=== PATIENT | female | born 1960 | race Caucasian/White ===

== ENCOUNTER 2016-04-03 09:24 | Emergency (ER) | payer OTHER ==
[~2016-04-03] VITALS: Wt 118.8 kg
[2016-04-03] VITALS (7 sets, daily range): BP systolic 119–169; BP diastolic 68–110
[~2016-04-03 09:24] MED LIST: AMOXICILLIN500 M3 PO; AMOXICILLIN500 MG PO; ANAPROX DS550 MG PO; ASPIRIN CHILDRE81 MG PO; AUGMENTIN 875 M1 TAB PO; CIPRODEX 0.3%-7.5 ML OT; D3 + K2 DOTS 11 EACH PO; FISH OIL 500MG500 MG PO; GINGER ROOT550 M1 PO; HYZAAR 50/12.5M1 TAB PO; MAGNESIUM CITR100 MG PO; MOTRIN800 MG PO; PALMITATE-A5000 IU PO; PROBIOTIC ACID1 EAC2 PO; RED RICE YEAST E0.4%; TURMERIC ROOT5000 GM PO
[2016-04-03 10:00] LABS: BASO # 0.1 10*3/uL (0.0-0.1); BASO % 0.5 % (0.0-1.0); EOS # 0.2 10*3/uL (0.0-0.4); EOS % 1.3 % (1.0-4.0); HEMOGLOBIN 15.8 g/dl (12.0-16.0); IG # 0.1 10*3/uL (0.0-0.1); LYMPH # 3.9 10*3/uL (1.3-4.4); LYMPH % 25.6 % (27.0-41.0); MEAN CELL VOLUME 86.6 fl (81.0-99.0); MEAN CORPUSCULAR HGB 28.5 pg (27.0-31.0); MEAN CORPUSCULAR HGB CONC 32.9 g/dl (33.0-37.0); MONO # 1.3 10*3/uL (0.1-1.0); MONO % 8.7 % (3.0-9.0); NEUT # 9.6 10*3/uL (2.3-7.9); NEUT % 63.2 % (47.0-73.0); PLATELET COUNT AUTOMATED 588 10*3/uL (130-400); RED BLOOD COUNT 5.54 10*6/uL (4.10-5.10); WHITE BLOOD COUNT 15.3 10*3/uL (4.8-10.8)
[2016-04-03] MEDS ORDERED: MASON NATURAL600 MG PO (10:00)
[2016-04-03] MEDS ORDERED: FISH OIL 1,2001 EACH PO (10:01)
[2016-04-03] MEDS ORDERED: PREDNISONE20 M1 PO (10:03)
[2016-04-03] MEDS ORDERED: VITAMIN D31000 I2 PO (10:03)
[2016-04-03] MEDS ORDERED: METHOTREXATE2.5 MG PO (10:04)
[2016-04-03] MEDS ORDERED: NATURE'S BLEND F1 MG PO (10:06)
[2016-04-03] MEDS ORDERED: MYCOPHENOLATE500 MG PO (10:06)
[2016-04-03 10:10] LABS: INTERNATIONAL NORM RATIO 0.9 (2.0-3.5); PROTHROMBIN TIME 9.4 SECONDS (9.0-12.4)
[2016-04-03 10:21] LABS: ALBUMIN 3.2 gm/dl (3.1-4.5); ALKALINE PHOSPHATASE 84 U/L (45-117); BILIRUBIN, TOTAL 0.3 mg/dl (0.2-1.0); BUN 11 mg/dl (7-24); CARBON DIOXIDE 25 mmol/L (21-32); CHLORIDE 109 mmol/L (98-107); EST GLOM FILT AFRICAN AMERICAN > 60 ml/min; GLUCOSE 109 mg/dL (65-99); POTASSIUM 3.8 mmol/L (3.5-5.1); SGOT/AST 10 IU/L (3-35); SGPT/ALT 19 U/L (12-78); SODIUM 144 mmol/L (136-145); TOTAL PROTEIN 7.6 gm/dL (6.4-8.2)
[2016-04-03 10:23] LABS: MAGNESIUM 2.5 mg/dL (1.5-2.1)
[2016-04-03 11:00] LABS: BILIRUBIN NEGATIVE (NEGATIVE); BLOOD TRACE-INTACT (NEGATIVE); CLARITY CLEAR (CLEAR); COLOR STRAW (YELLOW); GLUCOSE NEGATIVE (NEGATIVE); KETONE NEGATIVE (NEGATIVE); LEUKO ESTERASE NEGATIVE (NEGATIVE); NITRITE NEGATIVE (NEGATIVE); PROTEIN NEGATIVE (NEGATIVE); SPECIFIC GRAVITY <= 1.005 (1.005-1.030); UROBILINOGEN 0.2 E.U./dl (0.2-1.0)
[2016-04-03 11:08] LABS: BACTERIA TRACE; RBC 0-2 rbc/hpf (0-2); URINE REFLEX COMMENT NO (NO); WBC 0-2 wbc/hpf (0-5)
[2016-04-03] MEDS ORDERED: PREDNISONE5 MG PO (12:54)
[2016-04-04] MEDS ORDERED: METOPROLOL SUCC25 M2 PO (13:34)
[2016-04-04] MEDS ORDERED: XARE20MG PO (13:34)
== END 2016-04-03 12:22 | disposition admitted as inpatient to this hospital (09) ==
LOC: ED 09:24 → EDHOLD 11:19 → ED 12:22
PROVIDERS: Registered Nurse
DX: I48.91 Unspecified atrial fibrillation (principal); I10 Essential (primary) hypertension; F17.200 Nicotine dependence, unspecified, uncomplicated; Z79.82 Long term (current) use of aspirin; Z88.1 Allergy status to other antibiotic agents; Z88.6 Allergy status to analgesic agent; Z88.8 Allergy status to other drugs, medicaments and biological substances

== ENCOUNTER 2016-04-03 11:21 | Inpatient (IN) | payer OTHER ==
[~2016-04-03] VITALS: Ht 160 cm; Wt 122.5 kg
--- NOTE | ~2016-04-03 | PR ---
[place], [place] PROGRESS NOTE NAME: RAYMOND GAVIN UNIT #: [id number] ROOM: 525 DOCTOR: CRYSTAL MCBRIDE MD BIRTHDATE: [birth year] DOS: 04/04/2016 SUBJECTIVE: The patient was seen at her bedside today, 04/04/2016, for followup of atrial fibrillation. She tells me that she feels great today and is anxious for discharge. She denies any chest pain or palpitations. She denies any dyspnea. Review of her monitor; however, shows that she remains in atrial fibrillation with a controlled ventricular response. She has not yet received her first dose of rivaroxaban. PHYSICAL EXAMINATION: VITAL SIGNS: Today, her pulse is 87 and irregularly irregular, blood pressure 135/76. She is afebrile. She weighs 122.5 kilograms with a body mass index of 47.8. HEENT: Normocephalic, atraumatic. Extraocular muscles are intact. Sclerae are clear. Pupils are equal, round, and reactive to light. The oral mucosa is moist. Tongue is midline. NECK: Supple. She has no jugular distention. Carotids are full. I heard no bruits. LUNGS: Respirations are unlabored. Chest is clear to auscultation and percussion. HEART: Has an irregularly irregular rhythm without murmurs, rubs or gallops. ABDOMEN: Soft and normoactive. EXTREMITIES: Showed no edema. She does seem to be stable hemodynamically, even though she remains in atrial fibrillation. We are awaiting the results of her echocardiogram. Assuming no surprises, I think that she could go home in atrial fibrillation with a controlled rate with stroke prophylaxis and beta jo therapy. We will follow up with her in the office in a few weeks. If she remains in atrial fibrillation at that time, we can discuss with her the possibility of a cardioversion. I thank the hospitalist group for asking our advice regarding her care. [place], [place] PROGRESS NOTE NAME: RAYMOND GAVIN UNIT #: [id number] ROOM: 525 DOCTOR: CRYSTAL MCBRIDE MD BIRTHDATE: [birth year] CRYSTAL MCBRIDE MD CM:PNTRANS [id number] CRYSTAL MCBRIDE MD 04/04/162025 interface
--- NOTE | ~2016-04-03 | CON ---
[place], [place] REPORT OF CONSULTATION NAME: [id number] UNIT #: [id number] ROOM: 525 DOCTOR: CRYSTAL MCBRIDE MD BIRTHDATE: [birth year] DOS: 04/03/2016 CARDIOLOGY CONSULTATION REASON FOR CONSULTATION: Newly diagnosed atrial fibrillation. HISTORY OF PRESENT ILLNESS: The patient is a 55-year-old woman who states that she has never had any history of heart disease. This morning at about 9:00 a.m., she became dizzy while standing up and noticed that her breathing was rapid and that she was having palpitations. She was seen in the Emergency Room where she was found to be in atrial fibrillation with a rapid ventricular response. She was placed on diltiazem, her heart rate slowed, but she has not yet converted back to sinus rhythm. She had an episode where she felt like this several years ago just after the of their daughter. She states that she was not told of any irregular heartbeat at that time, however. The patient does have predisposing factors including obesity, significant snoring, possible sleep apnea (never evaluated), prediabetes, and cigarette abuse. She does have a history of essential hypertension. PAST MEDICAL HISTORY: Includes 1. 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 2. Prediabetes. 3. Right adrenal mass. 4. Thrombocytosis. 5. Essential hypertension. 6. Thyroid cyst. 7. Newly documented atrial fibrillation, first noted on 04/03/2016. FAMILY HISTORY: The patient denies any history of early coronary artery disease. She does have multiple family members who have had diabetes. REVIEW OF SYSTEMS: The patient denies diplopia or loss of vision. She denies focal weakness. She denies lightheadedness or syncope. She denies nausea or vomiting. She denies fevers, chills, sweats, or recent weight change. She denies heat or cold intolerance. She denies orthopnea or PND. She denies polydipsia or polyuria. She denies cough or hemoptysis. She denies hematemesis. She denies any bleeding in her stools or urine. She denies any peripheral edema. She denies skin rashes. The remainder of the review of systems is negative except as noted above. MEDICATIONS PRIOR TO ADMISSION: Aspirin 81 mg per day, vitamin D 1000 units per day, fish oil daily, folic acid 1 mg daily, probiotic capsule daily, losartan with hydrochlorothiazide 50/12.5 once a day, methotrexate 2.5 mg tablets 6 tablets every Friday, CellCept 1000 mg q.12 hours, prednisone 20 mg daily, and red yeast rice 600 mg daily. ALLERGIES: THE PATIENT LISTS ALLERGIES TO CHLORZOXAZONE, CLINDAMYCIN, CODEINE, [place], [place] REPORT OF CONSULTATION NAME: RAYMOND GAVIN [facility]: [id number] UNIT #: [id number] ROOM: [facility] DOCTOR: CRYSTAL MCBRIDE MD BIRTHDATE: [birth year] NAPROXEN, OXYCODONE, AND PROPOXYPHENE. SOCIAL HISTORY: The patient is and lives with her . She consumes no alcohol. She does smoke about a pack to pack and a half of cigarettes a day. PHYSICAL EXAMINATION: GENERAL: The patient is an obese white female who is awake, alert and oriented. VITAL SIGNS: Pulse is 98 and irregularly irregular, blood pressure 130/74, she is afebrile. She weighs 122.5 kg and has a body mass index of 47.8. HEENT: Normocephalic, atraumatic. Extraocular muscles are intact. Sclerae are clear. Pupils are equal, round and reactive to light. The oral mucosa is moist. Tongue is midline. NECK: Supple. She has no jugular distention. Carotids are full. I heard no bruits. She had no neck or supraclavicular masses and no thyromegaly. Respirations were unlabored. CHEST: Clear to auscultation and percussion. She had no presacral edema or chest wall tenderness. CARDIOVASCULAR: Her heart had an irregularly irregular rhythm. I heard no murmurs or gallops. The PMI was not displaced. She had no precordial heave, lift or thrill. ABDOMEN: Obese, but otherwise benign, without masses, organomegaly or bruits. EXTREMITIES: Showed no edema. Peripheral pulses are easily palpated bilaterally. LABORATORY DATA: I reviewed her electrocardiogram and it does show atrial fibrillation with a rapid ventricular response. Chest x-ray is normal. TSH is normal. IMPRESSIONS: 1. Newly documented atrial fibrillation. 2. Hypertension. 3. Insulin resistance. 4. History of polychondritis, which is being managed with methotrexate, CellCept, and prednisone. PLAN: The patient's CHADS-VASc score is between 2 and 3 predicting a high risk for stroke in the coming years. I think that we should be aggressive in anticoagulating her and I did suggest that she start either Coumadin or novel oral anticoagulant. She was adamant that she did not want to take Coumadin, and therefore we settled on Xarelto. We will start that tonight. I will review the results of the echocardiogram when they are available. Her TSH is normal, thus far she has remained in atrial fibrillation, but I am hoping she will convert overnight. We will start her on a beta jo p.o. to help encourage that. If things look good, we could let her go home tomorrow for outpatient followup subsequently. I thank the hospitalist group for asking our advice regarding the patient's care. [place], [place] REPORT OF CONSULTATION NAME: RAYMOND GAVIN UNIT #: [id number] ROOM: 525 DOCTOR: CRYSTAL MCBRIDE MD BIRTHDATE: [birth year] CRYSTAL MCBRIDE MD CM:CONSTR:REPORT OF CONSULTATION 1905 04/04/16 0540 interface
[~2016-04-03 11:21] MED LIST changes: +FISH OIL 1,2001 EACH PO; +MASON NATURAL600 MG PO; +METHOTREXATE2.5 MG PO; +MYCOPHENOLATE500 MG PO; +NATURE'S BLEND F1 MG PO; +PREDNISONE20 M1 PO; +VITAMIN D31000 I2 PO
[2016-04-03 12:15] VITALS: BP 146/109
[2016-04-03] MEDS ORDERED: PREDNISONE5 MG PO (12:54)
[2016-04-03 13:12] LABS: CKMB 2.9 ng/ml (0.5-3.6)
[2016-04-03 16:00] VITALS: BP 130/74
[2016-04-03 18:14] LABS: CKMB 2.6 ng/ml (0.5-3.6)
[2016-04-03 20:00] VITALS: BP 135/96
[2016-04-03 22:00] VITALS: BP 136/72
[2016-04-04] VITALS: BP 121/71
[2016-04-04 00:43] LABS: CKMB 2.4 ng/ml (0.5-3.6)
[2016-04-04 02:00] VITALS: BP 126/74
[2016-04-04 04:00] VITALS: BP 127/79
[2016-04-04 07:39] LABS: HEMATOCRIT 46.4 % (37.0-47.0); HEMOGLOBIN 14.9 g/dl (12.0-16.0); MEAN CORPUSCULAR HGB 28.3 pg (27.0-31.0); MEAN CORPUSCULAR HGB CONC 32.1 g/dl (33.0-37.0); MEAN PLATELET VOLUME 9.2 fl (9.6-12.3); PLATELET COUNT AUTOMATED 559 10*3/uL (130-400); RED BLOOD COUNT 5.27 10*6/uL (4.10-5.10)
[2016-04-04 07:47] LABS: INTERNATIONAL NORM RATIO 0.9 (2.0-3.5); PROTHROMBIN TIME 9.7 SECONDS (9.0-12.4)
[2016-04-04 08:00] VITALS: BP 142/82
[2016-04-04 08:07] LABS: BUN 10 mg/dl (7-24); CARBON DIOXIDE 28 mmol/L (21-32); CHLORIDE 108 mmol/L (98-107); CHOLESTEROL 228 mg/dL (<200); EST GLOM FILT AFRICAN AMERICAN > 60 ml/min; FREE T4 1.33 ng/dl (0.76-1.46); GLUCOSE 93 mg/dL (65-99); HDL CHOLESTEROL 53 mg/dl (40-60); LDL CHOLESTEROL 121 mg/dL (9-159); MAGNESIUM 2.5 mg/dL (1.5-2.1); POTASSIUM 3.6 mmol/L (3.5-5.1); SODIUM 145 mmol/L (136-145); TRIGLYCERIDES 268 mg/dl (<150); VLDL CHOLESTEROL 54 mg/dL (6-40)
[2016-04-04 08:10] LABS: EOSINOPHIL # 0.6 10*3/uL (0-0.4); EOSINOPHILS 4 % (1-4); LYMPHOCYTE # 6.8 10*3/uL (1.3-4.4); MONOCYTE # 0.8 10*3/uL (0.1-1.0); NEUTROPHIL # 6.9 10*3/uL (2.3-7.9); NEUTROPHILS 46 % (47-73); TOTAL CELLS COUNTED 100 #CELLS
[2016-04-04 08:11] LABS: PLATELET SUFFICIENCY HIGH (NORMAL)
[2016-04-04 08:24] VITALS: BP 135/76
[2016-04-04 09:11] LABS: FOLIC ACID > 24.00 ng/mL (>5.38)
[2016-04-04 12:00] VITALS: BP 124/89
[2016-04-04] MEDS ORDERED: XARE20MG PO (13:34)
[2016-04-04] MEDS ORDERED: METOPROLOL SUCC25 M2 PO (13:34)
== END 2016-04-04 16:16 | disposition home or self-care (01) | DRG 309 ==
LOC: 5E 11:21 → EDHOLD 11:21 → 5E 11:31
PROVIDERS: Internal Medicine
DX: I48.91 Unspecified atrial fibrillation (principal); D68.69 Other thrombophilia; Z68.42 Body mass index [BMI] 45.0-49.9, adult; I48.92 Unspecified atrial flutter; M94.8X9 Other specified disorders of cartilage, unspecified sites; I10 Essential (primary) hypertension; E04.1 Nontoxic single thyroid nodule; R00.0 Tachycardia, unspecified; R73.9 Hyperglycemia, unspecified; E83.41 Hypermagnesemia; D72.829 Elevated white blood cell count, unspecified; D47.3 Essential (hemorrhagic) thrombocythemia; F17.210 Nicotine dependence, cigarettes, uncomplicated; R73.03 Prediabetes; Z79.01 Long term (current) use of anticoagulants; Z88.6 Allergy status to analgesic agent; Z88.8 Allergy status to other drugs, medicaments and biological substances; Z79.82 Long term (current) use of aspirin; Z79.899 Other long term (current) drug therapy; Z88.1 Allergy status to other antibiotic agents; E66.9 Obesity, unspecified

== ENCOUNTER → 2016-09-08 | Outpatient (CLI) | payer OTHER ==
[~2016-09-08] MED LIST changes: +METOPROLOL SUCC25 M2 PO; +PREDNISONE5 MG PO; +XARE20MG PO
[2016-09-08 17:59] LABS: BASO # 0.1 10*3/uL (0.0-0.1); BASO % 0.4 % (0.0-1.0); EOS # 0.1 10*3/uL (0.0-0.4); EOS % 0.7 % (1.0-4.0); IG # 0.1 10*3/uL (0.0-0.1); LYMPH # 3.1 10*3/uL (1.3-4.4); LYMPH % 23.2 % (27.0-41.0); MEAN CORPUSCULAR HGB 28.3 pg (27.0-31.0); MEAN CORPUSCULAR HGB CONC 32.6 g/dl (33.0-37.0); MEAN PLATELET VOLUME 9.1 fl (9.6-12.3); MONO # 1.2 10*3/uL (0.1-1.0); MONO % 8.9 % (3.0-9.0); NEUT # 8.8 10*3/uL (2.3-7.9); NEUT % 66.1 % (47.0-73.0); PLATELET COUNT AUTOMATED 509 10*3/uL (130-400); RED BLOOD COUNT 4.94 10*6/uL (4.10-5.10); WHITE BLOOD COUNT 13.4 10*3/uL (4.8-10.8)
[2016-09-08 18:15] LABS: ALBUMIN 3.3 gm/dl (3.1-4.5); ALKALINE PHOSPHATASE 89 U/L (45-117); BILIRUBIN, TOTAL 0.3 mg/dl (0.2-1.0); BUN 12 mg/dl (7-24); CARBON DIOXIDE 28 mmol/L (21-32); CHLORIDE 105 mmol/L (98-107); EST GLOM FILT AFRICAN AMERICAN > 60 ml/min; GLUCOSE 100 mg/dL (65-99); LDH 195 U/L (84-246); POTASSIUM 3.7 mmol/L (3.5-5.1); SGOT/AST 15 IU/L (3-35); SGPT/ALT 18 U/L (12-78); SODIUM 140 mmol/L (136-145); TOTAL PROTEIN 7.2 gm/dL (6.4-8.2)
== END | disposition home or self-care (01) ==
LOC: LAB 17:20
PROVIDERS: Internal Medicine Hematology & Oncology
DX: D47.2 Monoclonal gammopathy (principal); D47.3 Essential (hemorrhagic) thrombocythemia; D72.828 Other elevated white blood cell count

== ENCOUNTER → 2016-11-29 | Outpatient (CLI) | payer OTHER | END | disposition home or self-care (01) | LOC: LAB 10:04 | DX: H53.8 Other visual disturbances (principal); R73.09 Other abnormal glucose ==

== ENCOUNTER 2017-02-17 00:47 | Emergency (ER) | payer OTHER ==
[~2017-02-17] VITALS: Ht 157.4 cm; Wt 126.7 kg
[2017-02-17 00:55] VITALS: BP 138/110
[2017-02-17 01:10] LABS: BASO # 0.1 10*3/uL (0.0-0.1); BASO % 0.5 % (0.0-1.0); EOS # 0.2 10*3/uL (0.0-0.4); HEMATOCRIT 47.6 % (37.0-47.0); HEMOGLOBIN 15.8 g/dl (12.0-16.0); LYMPH # 4.7 10*3/uL (1.3-4.4); LYMPH % 29.5 % (27.0-41.0); MEAN CELL VOLUME 84.1 fl (81.0-99.0); MEAN CORPUSCULAR HGB 27.9 pg (27.0-31.0); MEAN CORPUSCULAR HGB CONC 33.2 g/dl (33.0-37.0); MEAN PLATELET VOLUME 9.7 fl (9.6-12.3); MONO # 1.2 10*3/uL (0.1-1.0); MONO % 7.4 % (3.0-9.0); NEUT # 9.7 10*3/uL (2.3-7.9); PLATELET COUNT AUTOMATED 585 10*3/uL (130-400); RED BLOOD COUNT 5.66 10*6/uL (4.10-5.10); RED CELL DISTRI WIDTH 14.9 % (0-14.5); WHITE BLOOD COUNT 15.9 10*3/uL (4.8-10.8)
[2017-02-17 01:41] LABS: BILIRUBIN NEGATIVE (NEGATIVE); BLOOD TRACE-LYSED (NEGATIVE); CLARITY CLEAR (CLEAR); COLOR YELLOW (YELLOW); GLUCOSE NEGATIVE (NEGATIVE); KETONE NEGATIVE (NEGATIVE); LEUKO ESTERASE NEGATIVE (NEGATIVE); NITRITE NEGATIVE (NEGATIVE); SPECIFIC GRAVITY <= 1.005 (1.005-1.030); UROBILINOGEN 0.2 E.U./dl (0.2-1.0)
[2017-02-17 01:47] LABS: BACTERIA TRACE; EPITHELIAL CELLS 0-2; RBC 0-2 rbc/hpf (0-2); WBC 0-2 wbc/hpf (0-5)
[2017-02-17 01:51] LABS: URINE AMPHETAMINES < 1000 (1000ng/ml); URINE BARBITURATES < 200 (200ng/ml); URINE BENZODIAZEPINES < 200 (200ng/ml); URINE CANNABINOIDS (THC) < 50 (50ng/ml); URINE COCAINE < 300 (300ng/ml); URINE METHADONE < 300 (300ng/ml); URINE OPIATES < 300 (300ng/ml)
[2017-02-17 01:52] VITALS: BP 122/103
[2017-02-17 01:52] LABS: URINE PHENCYCLIDINE < 25 (25ng/ml)
[2017-02-17 02:02] VITALS: BP 121/76
[2017-02-17 02:03] LABS: ALBUMIN 3.1 gm/dl (3.1-4.5); ALKALINE PHOSPHATASE 102 U/L (45-117); BUN 16 mg/dl (7-24); CHLORIDE 108 mmol/L (98-107); CREATININE 0.84 mg/dL (0.55-1.02); POTASSIUM 3.4 mmol/L (3.5-5.1); SGOT/AST 12 IU/L (3-35); SGPT/ALT 19 U/L (12-78); SODIUM 143 mmol/L (136-145); TOTAL PROTEIN 7.3 gm/dL (6.4-8.2)
[2017-02-17 02:04] LABS: TROPONIN I < 0.015 ng/ml (<0.045)
[2017-02-17 04:14] VITALS: BP 114/85
--- NOTE | 2017-02-17 04:17 | NUR ---
Cardizem titrated to 10ml/hr.
--- NOTE | 2017-02-17 04:53 | NUR ---
CARDIZEM TITRATE TO 5ML/HR. PULSE 78, BLOOD PRESSURE 120/86.
--- NOTE | 2017-02-17 06:34 | NUR ---
CONSULTED [facility].
[2017-02-17] MEDS ORDERED: LOPRESSOR50 M1 PO (07:33)
[2017-02-18] MEDS ORDERED: PROPAFENONE HC225 M1 PO (10:24)
[2017-02-18] MEDS ORDERED: METOPROLOL SUCC25 M2 PO (10:24)
== END 2017-02-17 07:16 | disposition admitted as inpatient to this hospital (09) ==
LOC: ED 00:47 → EDHOLD 01:55 → EDBEDREQ 06:49 → EDBEDREQSVC 06:49 → ED 07:16
PROVIDERS: Emergency Medicine Emergency Medical Services
DX: I48.91 Unspecified atrial fibrillation (principal); F17.200 Nicotine dependence, unspecified, uncomplicated; I10 Essential (primary) hypertension; E78.00 Pure hypercholesterolemia, unspecified; Z79.82 Long term (current) use of aspirin; Z88.1 Allergy status to other antibiotic agents; Z88.6 Allergy status to analgesic agent; Z79.899 Other long term (current) drug therapy

== ENCOUNTER 2017-02-17 01:58 | Inpatient (IN) | payer OTHER ==
[~2017-02-17] VITALS: Ht 157.5 cm; Wt 125.4 kg
--- NOTE | ~2017-02-17 | PR ---
[place], [place] PROGRESS NOTE NAME: RAYMOND GAVIN UNIT #: [id number] ROOM: 416 DOCTOR: REED PAREDESCRYSTAL BIRTHDATE: [birth year] DOS: 02/18/2017 SUBJECTIVE: The patient was seen at her bedside today 02/18/2017 for followup of her paroxysmal atrial fibrillation. The patient feels well this morning and states that she did convert back to sinus rhythm. She was aware of the moment that it occurred. The monitor shows that it did occur at 2131 last evening and she states that it happened about that time as well. She denies any chest pain or palpitations. She denies lightheadedness. She is feeling substantially better. PHYSICAL EXAMINATION: VITAL SIGNS: Today, her pulse is 52 and regular, blood pressure is 102/48. She weighs 125.4 kg and has a body mass index of 50.6. She is afebrile. NECK: Supple. She has no jugular distention. Carotids are full. LUNGS: Respirations are unlabored and her chest is clear to auscultation and percussion. HEART: Has a regular rhythm with a fourth heart sound, but no third heart sound or murmur. The PMI is not displaced. ABDOMEN: Obese, but otherwise benign. EXTREMITIES: Showed no edema. IMPRESSION: 1. Paroxysmal atrial fibrillation. 2. Conversion to sinus rhythm, most likely brought on by initiation of antiarrhythmic therapy. 3. Morbid obesity. 4. Probable sleep apnea syndrome. 5. Relapsing polychondritis. 6. Chronic steroid therapy. 7. History of essential hypertension. 8. Prediabetes with insulin resistance. 9. Ongoing cigarette abuse. PLAN: I reviewed the patient's electrocardiogram post-cardioversion. It shows a normal QT interval and is a normal tracing. Her heart rate and blood pressure are now somewhat low, so we will decrease her beta jo therapy. We will plan on having her go home for followup as an outpatient. Strong consideration should be given for her to undergo sleep apnea testing in the near future as an outpatient since this probably does contribute to her recurrent atrial fibrillation. [facility] and I thank the hospitalist physicians for asking our advice regarding her care. [place], [place] PROGRESS NOTE NAME: RYAMOND GAVIN UNIT #: [id number] ROOM: 416 DOCTOR: CRYSTAL MCBRIDE MD BIRTHDATE: [birth year] CRYSTAL MCBRIDE MD CM:PNTRANS 7 2 CRYSTAL MCBRIDE MD 02/18/17 0854 interface
--- NOTE | ~2017-02-17 | CON ---
[place], [place] REPORT OF CONSULTATION [id number] UN[facility] #: [id number] ROOM: [facility] DOCTOR: CRYSTAL MCBRIDE MD BIRTHDATE: [birth year] DOS: 02/17/2017 CHIEF COMPLAINT: Palpitations, dyspnea and lightheadedness, recurrent atrial fibrillation. HISTORY OF PRESENT ILLNESS: The patient is a 56-year-old woman who has a history of relapsing polychondritis, essential hypertension, obesity, prediabetes and cigarette abuse who initially presented to the hospital in March 2016 with palpitations, at which time she was documented as having new onset atrial fibrillation. She was placed on beta blockers and a direct oral anticoagulant and converted spontaneously to sinus rhythm. I have been maintaining her on beta blockers for rate control and direct anticoagulant. Since then, she had no further palpitations until early this morning. She states that she went to bed and suddenly woke up with a feeling that her heart was pounding hard. She tried standing up, bearing down, coughing, taking deep breaths, etc., but her symptoms did not resolve, so she came to the emergency room where she was documented as being in atrial fibrillation with a rapid ventricular response. We were asked to assist in her management. She was placed on a diltiazem drip and her rate is now controlled, but she remains in atrial fibrillation. PAST MEDICAL HISTORY: Includes 1. Essential hypertension. 2. Relapsing polychondritis. 3. Prediabetes with insulin resistance. 4. Morbid obesity. 5. Long-term and ongoing cigarette abuse. 6. Probable sleep apnea syndrome. 7. Newly documented atrial fibrillation with a rapid ventricular response, 04/03/2016. 8. Echocardiogram 04/04/2016, technically difficult study, normal left ventricular size with mild concentric left ventricular hypertrophy, normal systolic function, normal left atrial size. No significant abnormalities of valve structure or function. 9. Spontaneous conversion to sinus rhythm noted when the patient returned for followup 04/30/2016. 10. Paroxysmal atrial fibrillation, prompting hospitalization 02/17/2017. REVIEW OF SYSTEMS: The patient denies diplopia or loss of vision. She denies syncope, but does feel lightheaded. She denies focal weakness. She denies orthopnea or PND. She denies fevers, chills or sweats. She does note that her states she snores loudly. She denies any focal weakness. She denies vomiting, although she does have mild nausea. She does admit to weight gain recently, which she attributes to her chronic steroid use. She denies any cough or hemoptysis. She denies hematemesis. She denies any change in bowel or bladder habits. She denies any blood in her urine or stools. She denies any peripheral edema. She denies any recent skin rashes. The remainder of the review of systems is normal except as noted above. MEDICATIONS: Prior to admission, vitamin D 1000 units daily, fish oil 1200 mg [place], [place] REPORT OF CONSULTATION NAME: RAYMOND GAVIN UNIT #: [id number] ROOM: [facility] DOCTOR: CRYSTAL MCBRIDE MD BIRTHDATE: [birth year] daily, folic acid 1 mg daily, Lactobacillus acidophilus probiotic daily, losartan with hydrochlorothiazide 50/12.5 mg daily, methotrexate 2.5 mg tablets 4 tablets taken every Friday, metoprolol tartrate 50 mg twice a day, mycophenolate 500 mg 3 tablets every 12 hours, prednisone 15 mg daily, red yeast rice 600 mg daily and rivaroxaban 20 mg every evening with food. The patient states that she has not missed any of her anticoagulation medications in recent memory. ALLERGIES: She lists allergies to PARAFON FORTE, CLINDAMYCIN, CODEINE, NAPROXEN and OXYCODONE. FAMILY HISTORY: Negative for early coronary artery disease. SOCIAL HISTORY: The patient is and lives with her . She does smoke 1 pack a day. She does not consume significant amounts of alcohol. As noted above, her states that she snores loudly. PHYSICAL EXAMINATION: GENERAL: The patient is an obese white female who is awake, alert and oriented. VITAL SIGNS: Pulse is 81 and irregularly irregular. Blood pressure is 132/80. She is afebrile. She weighs 125.4 kg and has a body mass index of 50.6. HEENT: Normocephalic and atraumatic. Extraocular muscles are intact. Sclerae are clear. Pupils are equal, round and react to light. The oral mucosa is moist. Tongue is midline. NECK: Supple. She has no jugular distention. Carotids are full. She has no bruit. She has no neck or supraclavicular masses and no thyromegaly. RESPIRATORY: Respirations are unlabored. Her chest is clear to auscultation and percussion. She has no presacral edema or chest wall tenderness. CARDIOVASCULAR: Her heart has an irregularly irregular rhythm. There are no murmurs or gallops. The PMI is not displaced. She has no precordial heave, lift or thrill. ABDOMEN: Soft and normally active without masses, organomegaly or bruits. EXTREMITIES: Showed no clubbing, cyanosis or edema. Peripheral pulses are easily palpated bilaterally. LABORATORY DATA: Hemoglobin is 14.6 with hematocrit 44.9, there are 12,900 white cells and 507,000 platelets present. Sodium is 143, potassium 3.4, chloride 108, CO2 25, BUN 15, creatinine 0.68. Cholesterol is 219, triglycerides 304. TSH 2.03. IMPRESSION: 1. Recurrent paroxysmal atrial fibrillation with rapid ventricular response. 2. Morbid obesity. 3. Probable sleep apnea syndrome, which certainly contributes to the recurrent atrial fibrillation. 4. Relapsing polychondritis. 5. Chronic steroid therapy. 6. Immunocompromised host. 7. History of essential hypertension. 8. Prediabetes with insulin resistance. [place], [place] REPORT OF CONSULTATION NAME: RAYMOND GAVIN UNIT #: [id number] ROOM: [facility] DOCTOR: CRYSTAL MCBRIDE MD BIRTHDATE: [birth year] 9. Ongoing cigarette abuse. PLAN: The patient's rate has been slowed with diltiazem. We will resume her metoprolol and stop the diltiazem drip at this time. I do not see any indication for further cardiac workup. An echocardiogram at this time would not change her management. The patient does feel better in sinus rhythm and has had recurrent atrial fibrillation on beta blockers alone, we will therefore start her on an antiarrhythmic drug. Since her left ventricular function has been normal, we will utilize propafenone. If she does not convert to sinus rhythm overnight, then we will plan on doing an elective cardioversion on Friday prior to letting her go home. She will be going home on an antiarrhythmic drug at this time and if that fails, we will talk about electrophysiologic evaluation for possible ablation. I thank the hospitalist physicians for asking our advice regarding her care. CRYSTAL MCBRIDE MD CM:CONSTR:REPORT OF CONSULTATION 5 02/17/1745 interface FARIDA FOSTER DO
[2017-02-17 06:25] LABS: BASO # 0.1 10*3/uL (0.0-0.1); BASO % 0.4 % (0.0-1.0); EOS # 0.2 10*3/uL (0.0-0.4); EOS % 1.3 % (1.0-4.0); HEMATOCRIT 44.9 % (37.0-47.0); HEMOGLOBIN 14.6 g/dl (12.0-16.0); LYMPH # 3.1 10*3/uL (1.3-4.4); LYMPH % 23.9 % (27.0-41.0); MEAN CELL VOLUME 85.7 fl (81.0-99.0); MEAN CORPUSCULAR HGB 27.9 pg (27.0-31.0); MEAN CORPUSCULAR HGB CONC 32.5 g/dl (33.0-37.0); MEAN PLATELET VOLUME 9.2 fl (9.6-12.3); MONO # 1.1 10*3/uL (0.1-1.0); MONO % 8.6 % (3.0-9.0); NEUT # 8.4 10*3/uL (2.3-7.9); NEUT % 65.2 % (47.0-73.0); PLATELET COUNT AUTOMATED 507 10*3/uL (130-400); RED BLOOD COUNT 5.24 10*6/uL (4.10-5.10); RED CELL DISTRI WIDTH 14.7 % (0-14.5); WHITE BLOOD COUNT 12.9 10*3/uL (4.8-10.8)
[2017-02-17 06:52] LABS: BUN 15 mg/dl (7-24); CHLORIDE 108 mmol/L (98-107); CHOLESTEROL 219 mg/dL (<200); CREATININE 0.68 mg/dL (0.55-1.02); HDL CHOLESTEROL 46 mg/dl (40-60); LDL CHOLESTEROL 112 mg/dL (9-159); POTASSIUM 3.4 mmol/L (3.5-5.1); SODIUM 143 mmol/L (136-145); TRIGLYCERIDES 304 mg/dl (<150); VLDL CHOLESTEROL 61 mg/dL (6-40)
[2017-02-17 06:56] LABS: ACT PARTIAL THROMBO TIME 37.9 SECONDS (20.8-31.5); INTERNATIONAL NORM RATIO 1.1 (2.0-3.5)
[2017-02-17 06:58] VITALS: BP 132/80
--- NOTE | 2017-02-17 06:58 | NUR ---
A 56, admitted to [facility], under the services of JULIANNA Thayer DO with a diagnosis of new onset AF. Chief complaint is palpitations. Patient arrived via bed from ER. Monitor applied. Initial assessment completed. Vital signs taken and recorded. JULIANNA THAYER DO notified of admission to the unit. Orders received. See assessment for past medical history, medications and allergies. Patient and/or family oriented to unit. [facility] visitation policy reviewed. Clothing/patient valuable form completed. SHALINI MURRAY
--- NOTE | 2017-02-17 07:10 | NUR ---
SPOKE WITH DR. MIRANDA, PHYSICIAN ASSISTANT CERTIFIED. NO ORDERS RECEIVED.
[2017-02-17] MEDS ORDERED: LOPRESSOR50 M1 PO (07:33)
[2017-02-17 08:00] VITALS: BP 132/80
[2017-02-17 08:58] LABS: VITAMIN D, 25-HYDROXY 43.2 ng/mL (30-100)
--- NOTE | 2017-02-17 09:32 | NUR ---
Dr. Pitts in to [facility]. Orders were recieved. Cardioversion scheduled for tomorrow at 1030. pt. aware.
[2017-02-17 12:00] VITALS: BP 135/92
--- NOTE | 2017-02-17 13:50 | NUR ---
Transferred to [facility] via bed w/ belongings. Spouse present on transfer.
[2017-02-17 16:00] VITALS: BP 114/84
[2017-02-17 20:00] VITALS: BP 121/86
--- NOTE | 2017-02-17 20:00 | NUR ---
PT AWAKE IN BED WATCHING TV AND ON LAPTOP. DENIES PAIN. C/O MILD DIZZINESS WITH STANDING FROM SITTING. PT PLEASANT AND TALKATIVE. CALL LIGHT IN REACH.
--- NOTE | 2017-02-17 21:30 | NUR ---
PT CONVERTED TO NSR AT THIS TIME AND IS SUSTAINING NSR. PT RESTING QUIETLY IN BED AT THIS TIME W/EYES CLOSED.
--- NOTE | 2017-02-17 22:51 | NUR ---
24 HR chart check completed.
[2017-02-18] VITALS: BP 102/48
--- NOTE | 2017-02-18 04:58 | NUR ---
PT RESTING QUIETLY IN BED AT THIS TIME. NO S/S OF DISTRESS NOTED. PT REMAINS IN SINUS RYTHM ON CLINICAL CODER.
[2017-02-18 08:00] VITALS: BP 121/69
--- NOTE | 2017-02-18 08:01 | NUR ---
Awake and alert this AM. Conversion to NSR noted. Message sent to OR. Dr. Pitts aware.
--- NOTE | 2017-02-18 09:00 | NUR ---
Piano Professor in to talk to patient. Patient states lives at home with . There are no steps in the home. Physician: frank can Pharmacy: [facility] health services: none Patient's level of ADLs: INDEPENDENT Patient has working utilities: all working DME: cane Follow-up physician's appointment after d/c: will be made by hospitalist nurse director upon discharge Does patient want to access PORTAL?: no Discharge plan discussed with patient, patient lives at home with , states she gets around fine with a cane, patient states she will be going back home when able and denies any home needs. LUDA HUSTON
[2017-02-18] MEDS ORDERED: PROPAFENONE HC225 M1 PO (10:24)
[2017-02-18] MEDS ORDERED: METOPROLOL SUCC25 M2 PO (10:24)
--- NOTE | 2017-02-18 11:40 | NUR ---
Dr. Schmidt in order for discharge recieved. IV and monitor removed. Discharge instruction given. Voiced understanding. Discharged to home.
== END 2017-02-18 11:40 | disposition home or self-care (01) | DRG 309 ==
LOC: EDHOLD 01:58 → 4E 01:58 → ICCU 01:58 → 4E 13:27
PROVIDERS: Internal Medicine; ADMIT Internal Medicine
DX: I48.0 Paroxysmal atrial fibrillation (principal); Z68.43 Body mass index [BMI] 50.0-59.9, adult; E66.01 Morbid (severe) obesity due to excess calories; M94.1 Relapsing polychondritis; I10 Essential (primary) hypertension; E78.00 Pure hypercholesterolemia, unspecified; K57.90 Diverticulosis of intestine, part unspecified, without perforation or abscess without bleeding; R73.9 Hyperglycemia, unspecified; E87.6 Hypokalemia; F17.210 Nicotine dependence, cigarettes, uncomplicated; Z79.01 Long term (current) use of anticoagulants; Z87.440 Personal history of urinary (tract) infections; Z85.09 Personal history of malignant neoplasm of other digestive organs; Z88.6 Allergy status to analgesic agent; Z88.8 Allergy status to other drugs, medicaments and biological substances; Z79.899 Other long term (current) drug therapy; Z71.6 Tobacco abuse counseling

== ENCOUNTER → 2017-04-03 | Outpatient (CLI) | payer OTHER ==
[~2017-04-03] MED LIST changes: +LOPRESSOR50 M1 PO; +PROPAFENONE HC225 M1 PO
== END | disposition home or self-care (01) ==
LOC: MAMMO 02-06 10:40 → RAD 02-06 11:00 → MAMMO 03-12 10:40 → RAD 03-12 13:30 → MAMMO 12:41
DX: Z12.31 Encounter for screening mammogram for malignant neoplasm of breast (principal); Z13.820 Encounter for screening for osteoporosis; N95.9 Unspecified menopausal and perimenopausal disorder

== ENCOUNTER 2017-04-16 01:11 | Emergency (ER) | payer OTHER ==
[~2017-04-16] VITALS: Ht 160 cm; Wt 127.9 kg
[2017-04-16 01:44] LABS: HEMOGLOBIN 14.9 g/dl (12.0-16.0); MEAN CELL VOLUME 84.4 fl (81.0-99.0); MEAN CORPUSCULAR HGB CONC 33.1 g/dl (33.0-37.0); MEAN PLATELET VOLUME 9.3 fl (9.6-12.3); PLATELET COUNT AUTOMATED 560 10*3/uL (130-400); RED BLOOD COUNT 5.33 10*6/uL (4.10-5.10); WHITE BLOOD COUNT 16.9 10*3/uL (4.8-10.8)
[2017-04-16 01:54] LABS: ACT PARTIAL THROMBO TIME 35.9 SECONDS (20.8-31.5)
[2017-04-16 02:01] LABS: ALBUMIN 3.5 gm/dl (3.1-4.5); ALKALINE PHOSPHATASE 95 U/L (45-117); BUN 16 mg/dl (7-24); CHLORIDE 107 mmol/L (98-107); CREATININE 0.82 mg/dL (0.55-1.02); POTASSIUM 3.6 mmol/L (3.5-5.1); SGOT/AST 13 IU/L (3-35); SGPT/ALT 19 U/L (12-78); SODIUM 143 mmol/L (136-145); TOTAL PROTEIN 7.6 gm/dL (6.4-8.2)
[2017-04-16 02:09] LABS: ATYPICAL LYMPHS 2 % (0-0); BASOPHILS 1 % (0-1); PLATELET SUFFICIENCY HIGH (NORMAL); TOTAL CELLS COUNTED 100 #CELLS
[2017-04-16 02:13] LABS: TROPONIN I < 0.015 ng/ml (<0.045)
[2017-04-16] MEDS ORDERED: CALCIUM 600 +1 EAC5 PO (03:56)
[2017-04-16] MEDS ORDERED: PROPAFENONE HC325 MG PO (17:08)
== END 2017-04-16 03:30 | disposition admitted as inpatient to this hospital (09) ==
LOC: ED 01:11
PROVIDERS: Student in an Organized Health Care Education/Training Program
DX: R00.2 Palpitations (principal); I48.91 Unspecified atrial fibrillation; R19.7 Diarrhea, unspecified; I10 Essential (primary) hypertension; R73.9 Hyperglycemia, unspecified; E83.41 Hypermagnesemia; E87.6 Hypokalemia; F17.200 Nicotine dependence, unspecified, uncomplicated; Z88.6 Allergy status to analgesic agent; Z88.5 Allergy status to narcotic agent; Z88.8 Allergy status to other drugs, medicaments and biological substances; Z79.899 Other long term (current) drug therapy

== ENCOUNTER 2017-04-16 02:40 | Inpatient (IN) | payer OTHER ==
[~2017-04-16] VITALS: Ht 162.5 cm; Wt 123.1 kg
--- NOTE | ~2017-04-16 | CON ---
[place], [place] REPORT OF CONSULTATION NAME: RAYMOND GAVIN [facility] #: [id number] UNIT #: [id number] ROOM: 403 DOCTOR: CRYSTAL MCBRIDE MD BIRTHDATE: [birth year] DOS: 04/16/2017 The patient was seen for cardiology consult on 04/16/2017. CHIEF COMPLAINT: Recurrent palpitations. HISTORY OF PRESENT ILLNESS: The patient is a 56-year-old woman who has a history of relapsing polychondritis, essential hypertension and cigarette abuse. She first presented with atrial fibrillation in March 2016 at which time her palpitations were documented to be due to atrial fibrillation. She converted spontaneously to sinus rhythm and we have been maintaining her on a direct oral anticoagulant for stroke prophylaxis along with a beta jo for rate control. She did well until mid January 2018 when her atrial fibrillation recurred. She was placed on propafenone at that time and remained in sinus rhythm until yesterday. While at rest yesterday, she developed palpitations and was found to be in atrial fibrillation with rapid ventricular response again. She was hospitalized and in the hospital converted spontaneously to sinus rhythm today. The patient now feels well. She denies any chest discomfort, orthopnea, or PND. She is anxious for discharge. PAST MEDICAL HISTORY: Includes 1. Essential hypertension. 2. Relapsing polychondritis. 3. Insulin resistant prediabetes. 4. Ongoing cigarette abuse. 5. Atrial fibrillation with rapid ventricular response, first documented 04/03/2016. 6. Echocardiogram 04/04/2016, technically difficult study demonstrating normal left ventricular size, mild concentric left ventricular hypertrophy, normal systolic function. Normal left atrial size. No significant abnormalities of valve structure or function. 7. Spontaneous conversion to sinus rhythm documented by office electrocardiogram 04/30/2016. 8. Recurrent atrial fibrillation and flutter 02/17/2017. The patient was started on propafenone. 9. Recurrent atrial fibrillation, prompting admission 04/15/2017. The patient converted spontaneously to sinus rhythm. REVIEW OF SYSTEMS: The patient denies diplopia, loss of vision. She denies syncope, but she does feel lightheaded when she is out of rhythm. She denies focal weakness. She has no orthopnea or PND. She denies fevers, chills, sweats or recent weight change. She does have a loud snore. She denies any focal weakness. She denies nausea or vomiting. She denies any cough or hemoptysis. She denies hematemesis. She denies any change in bowel or bladder habits and denies any blood in her urine or stools. She denies any peripheral edema. She denies any skin rashes. She denies any heat or cold intolerance and denies any polyuria or polydipsia. The remainder of the review of systems is normal except as noted above. [place], [place] REPORT OF CONSULTATION NAME: RAYMOND GAVIN UNIT #: [id number] ROOM: 403 DOCTOR: CRYSTAL MCBRIDE MD BIRTHDATE: [birth year] MEDICATIONS: Prior to admission, calcium carbonate with vitamin D b.i.d., vitamin D 1000 units daily, fish oil 1200 mg daily, folic acid 1 mg daily, probiotic one capsule daily, losartan with hydrochlorothiazide 50/12.5 once a day, methotrexate 2.5 mg 4 tablets on Friday; metoprolol 25 mg b.i.d., Mycophenolate mofetil 500 mg tablets 3 tablets q. 12 hours, prednisone 15 mg daily, propafenone ER 225 mg twice a day, red yeast rice 600 mg daily and rivaroxaban 20 mg daily with food. ALLERGIES: THE PATIENT HAS ALLERGIES TO PARAFON FORTE CLINDAMYCIN, CODEINE, NAPROXEN, OXYCODONE, AND STATINS. FAMILY HISTORY: Negative for early coronary artery disease. SOCIAL HISTORY: The patient is and lives with her . She smokes a pack of cigarettes a day. She does not consume significant amounts of alcohol. PHYSICAL EXAMINATION: GENERAL: The patient is an overweight white female who is awake, alert and oriented. VITAL SIGNS: Pulse is 55 and regular, blood pressure is 120/42. She is afebrile. She weighs 123.1 kg and has a body mass index of 46.6. HEENT: Normocephalic and atraumatic. Extraocular muscles are intact. Sclerae are clear. Pupils are equal, round, and react to light. The oral mucosa is moist. Tongue is midline. NECK: Supple. She has no jugular distention. Carotids are full and I heard no bruits. She had no neck or supraclavicular masses, no thyromegaly. LUNGS: Respirations are unlabored. Her chest is clear to auscultation and percussion. She has no presacral edema or chest wall tenderness. HEART: Has a regular rhythm. She has a fourth heart sound, but no third heart sound or murmur. The PMI is not displaced. She has no precordial heave, lift or thrill. ABDOMEN: Soft and normally active without masses, organomegaly or bruits. EXTREMITIES: Showed no edema. Peripheral pulses are palpable in the feet. LABORATORY DATA: Hemoglobin is 14.2, white count 14,300, platelet count 499,000. Sodium 143, potassium 3.3, chloride 109, BUN 14, creatinine 0.78. IMPRESSIONS: 1. Recurrent atrial fibrillation despite antiarrhythmic therapy. 2. Essential hypertension. 3. Relapsing polychondritis. 4. Prediabetes. 5. Ongoing cigarette abuse. 6. Possible sleep apnea syndrome. PLAN: For now, we will increase her propafenone from 225 mg b.i.d. to 325 mg b.i.d. She will continue her other medications as previously prescribed. She has already converted spontaneously to sinus rhythm again on this admission and no other change in her medications or evaluation are indicated now. If she has [place], [place] REPORT OF CONSULTATION [facility]: [id number] UNIT #: [id number] ROOM: 403 DOCTOR: CRYSTAL MCBRIDE MD BIRTHDATE: [birth year] not been evaluated by her primary physician for sleep apnea, this should be performed in the near future. I will be referring her to an spray rig operator to consider other options such as a different antiarrhythmic drug or possibly ablation and we will also follow up with her in the office. I thank the hospitalist physicians for asking our advice regarding her care. CRYSTAL MCBRIDE MD CM:CONSTR:REPORT OF CONSULTATION 17 04/16/172033 interface
[2017-04-16 03:30] VITALS: BP 107/49
[2017-04-16] MEDS ORDERED: CALCIUM 600 +1 EAC5 PO (03:56)
[2017-04-16 07:25] LABS: BASO # 0.1 10*3/uL (0.0-0.1); BASO % 0.7 % (0.0-1.0); EOS # 0.2 10*3/uL (0.0-0.4); EOS % 1.1 % (1.0-4.0); HEMATOCRIT 42.7 % (37.0-47.0); HEMOGLOBIN 14.2 g/dl (12.0-16.0); LYMPH # 3.5 10*3/uL (1.3-4.4); LYMPH % 24.7 % (27.0-41.0); MEAN CELL VOLUME 86.3 fl (81.0-99.0); MEAN CORPUSCULAR HGB 28.7 pg (27.0-31.0); MEAN CORPUSCULAR HGB CONC 33.3 g/dl (33.0-37.0); MEAN PLATELET VOLUME 9.3 fl (9.6-12.3); MONO # 1.5 10*3/uL (0.1-1.0); MONO % 10.3 % (3.0-9.0); NEUT % 62.6 % (47.0-73.0); PLATELET COUNT AUTOMATED 499 10*3/uL (130-400); RED BLOOD COUNT 4.95 10*6/uL (4.10-5.10); WHITE BLOOD COUNT 14.3 10*3/uL (4.8-10.8)
[2017-04-16 07:38] LABS: ACT PARTIAL THROMBO TIME 32.6 SECONDS (20.8-31.5)
[2017-04-16 08:00] VITALS: BP 109/45
[2017-04-16 08:05] LABS: BUN 14 mg/dl (7-24); CHLORIDE 109 mmol/L (98-107); CHOLESTEROL 203 mg/dL (<200); CREATININE 0.78 mg/dL (0.55-1.02); HDL CHOLESTEROL 45 mg/dl (40-60); LDL CHOLESTEROL 105 mg/dL (9-159); POTASSIUM 3.3 mmol/L (3.5-5.1); SODIUM 143 mmol/L (136-145); TRIGLYCERIDES 267 mg/dl (<150); VLDL CHOLESTEROL 53 mg/dL (6-40)
[2017-04-16 08:35] LABS: VITAMIN D, 25-HYDROXY 29.8 ng/mL (30-100)
[2017-04-16 12:00] VITALS: BP 120/42
[2017-04-16] MEDS ORDERED: PROPAFENONE HC325 MG PO (17:08)
== END 2017-04-16 17:28 | disposition home or self-care (01) | DRG 309 ==
LOC: EDHOLD 02:40 → 4E 02:51
PROVIDERS: Internal Medicine
DX: I48.0 Paroxysmal atrial fibrillation (principal); D68.69 Other thrombophilia; Z68.42 Body mass index [BMI] 45.0-49.9, adult; M94.1 Relapsing polychondritis; D47.3 Essential (hemorrhagic) thrombocythemia; I10 Essential (primary) hypertension; R73.03 Prediabetes; E78.1 Pure hyperglyceridemia; D72.829 Elevated white blood cell count, unspecified; E66.9 Obesity, unspecified; F17.210 Nicotine dependence, cigarettes, uncomplicated; Z71.6 Tobacco abuse counseling; Z88.1 Allergy status to other antibiotic agents; Z88.5 Allergy status to narcotic agent; Z88.8 Allergy status to other drugs, medicaments and biological substances

== ENCOUNTER 2017-05-01 04:43 | Emergency (ER) | payer OTHER ==
[~2017-05-01] VITALS: Wt 127.0 kg
[~2017-05-01 04:43] MED LIST changes: +CALCIUM 600 +1 EAC5 PO; +PROPAFENONE HC325 MG PO
[2017-05-01 05:21] LABS: BASO # 0.1 10*3/uL (0.0-0.1); BASO % 0.5 % (0.0-1.0); EOS # 0.2 10*3/uL (0.0-0.4); EOS % 1.4 % (1.0-4.0); HEMATOCRIT 43.4 % (37.0-47.0); HEMOGLOBIN 14.1 g/dl (12.0-16.0); LYMPH # 4.5 10*3/uL (1.3-4.4); LYMPH % 32.5 % (27.0-41.0); MEAN CELL VOLUME 85.4 fl (81.0-99.0); MEAN CORPUSCULAR HGB 27.8 pg (27.0-31.0); MEAN CORPUSCULAR HGB CONC 32.5 g/dl (33.0-37.0); MEAN PLATELET VOLUME 9.2 fl (9.6-12.3); MONO # 1.3 10*3/uL (0.1-1.0); MONO % 9.2 % (3.0-9.0); NEUT # 7.7 10*3/uL (2.3-7.9); NEUT % 55.7 % (47.0-73.0); PLATELET COUNT AUTOMATED 524 10*3/uL (130-400); RED BLOOD COUNT 5.08 10*6/uL (4.10-5.10); RED CELL DISTRI WIDTH 14.9 % (0-14.5); WHITE BLOOD COUNT 13.8 10*3/uL (4.8-10.8)
[2017-05-01 05:46] LABS: BUN 12 mg/dl (7-24); CHLORIDE 109 mmol/L (98-107); CREATININE 0.83 mg/dL (0.55-1.02); POTASSIUM 3.3 mmol/L (3.5-5.1); SODIUM 146 mmol/L (136-145); TROPONIN I < 0.015 ng/ml (<0.045)
[2017-05-01] MEDS ORDERED: ATIVAN1 MG PO (06:17)
== END 2017-05-01 06:41 | disposition home or self-care (01) ==
LOC: ED 04:43
PROVIDERS: Emergency Medicine Emergency Medical Services
DX: I48.91 Unspecified atrial fibrillation (principal); F17.200 Nicotine dependence, unspecified, uncomplicated; I10 Essential (primary) hypertension; E66.9 Obesity, unspecified; E11.9 Type 2 diabetes mellitus without complications; Z79.899 Other long term (current) drug therapy; Z88.8 Allergy status to other drugs, medicaments and biological substances; Z88.5 Allergy status to narcotic agent; Z91.041 Radiographic dye allergy status

== ENCOUNTER 2017-05-28 19:16 | Emergency (ER) | payer OTHER ==
[~2017-05-28] VITALS: Ht 161.2 cm; Wt 127.2 kg
[~2017-05-28 19:16] MED LIST changes: +ATIVAN1 MG PO
[2017-05-28 20:00] LABS: HEMATOCRIT 44.6 % (37.0-47.0); HEMOGLOBIN 14.3 g/dl (12.0-16.0); MEAN CELL VOLUME 87.3 fl (81.0-99.0); MEAN CORPUSCULAR HGB CONC 32.1 g/dl (33.0-37.0); PLATELET COUNT AUTOMATED 550 10*3/uL (130-400); RED BLOOD COUNT 5.11 10*6/uL (4.10-5.10); RED CELL DISTRI WIDTH 14.9 % (0-14.5); WHITE BLOOD COUNT 16.3 10*3/uL (4.8-10.8)
[2017-05-28 20:15] LABS: ALBUMIN 3.3 gm/dl (3.1-4.5); ALKALINE PHOSPHATASE 80 U/L (45-117); BUN 18 mg/dl (7-24); CHLORIDE 103 mmol/L (98-107); CREATININE 0.79 mg/dL (0.55-1.02); LIPASE 150 U/L (73-393); POTASSIUM 3.7 mmol/L (3.5-5.1); SGOT/AST 9 IU/L (3-35); SGPT/ALT 19 U/L (12-78); SODIUM 138 mmol/L (136-145); TOTAL PROTEIN 7.3 gm/dL (6.4-8.2)
[2017-05-28 20:20] LABS: TOTAL CELLS COUNTED 100 #CELLS
[2017-05-28 20:21] LABS: PLATELET SUFFICIENCY HIGH (NORMAL)
[2017-05-28 20:38] LABS: BILIRUBIN NEGATIVE (NEGATIVE); BLOOD NEGATIVE (NEGATIVE); CLARITY CLEAR (CLEAR); COLOR YELLOW (YELLOW); GLUCOSE NEGATIVE (NEGATIVE); KETONE NEGATIVE (NEGATIVE); LEUKO ESTERASE NEGATIVE (NEGATIVE); NITRITE NEGATIVE (NEGATIVE); SPECIFIC GRAVITY <= 1.005 (1.005-1.030); UROBILINOGEN 0.2 E.U./dl (0.2-1.0)
[2017-05-28 20:47] LABS: BACTERIA TRACE
[2017-05-28 20:48] LABS: RBC 0-2 rbc/hpf (0-2); WBC 0-2 wbc/hpf (0-5)
[2017-05-28] MEDS ORDERED: COLACE100 MG PO (21:27)
[2017-05-28] MEDS ORDERED: NORCO 5-325 TA1 EACH PO (21:27)
== END 2017-05-28 21:38 | disposition home or self-care (01) ==
LOC: ED 19:16
PROVIDERS: Physician Assistant
DX: S20.211A Contusion of right front wall of thorax, initial encounter (principal); K64.4 Residual hemorrhoidal skin tags; I10 Essential (primary) hypertension; I48.91 Unspecified atrial fibrillation; F17.200 Nicotine dependence, unspecified, uncomplicated; Z88.6 Allergy status to analgesic agent; Z88.1 Allergy status to other antibiotic agents; Z88.8 Allergy status to other drugs, medicaments and biological substances; Z79.899 Other long term (current) drug therapy; X58.XXXA Exposure to other specified factors, initial encounter; Y93.89 Activity, other specified; Y92.89 Other specified places as the place of occurrence of the external cause; Y99.8 Other external cause status

== ENCOUNTER → 2017-09-01 | Outpatient (CLI) | payer OTHER ==
[~2017-09-01] MED LIST changes: +COLACE100 MG PO; +KLOR-CON M1010 ME1 PO; +NORCO 5-325 TA1 EACH PO
[2017-09-01 10:05] LABS: THYROID STIM HORMONE (HS) 2.81 uIU/ml (0.358-4.75)
[2017-09-02 08:11] LABS: TOTAL PROTEIN, SERUM 6.6 g/dL (6.0-8.5)
[2017-09-02 16:09] LABS: A/G RATIO 1.1 (0.7-1.7); ALBUMIN 3.5 g/dL (2.9-4.4); ALPHA-1-GLOBULIN 0.2 g/dL (0.0-0.4); ALPHA-2-GLOBULIN 0.8 g/dL (0.4-1.0); BETA GLOBULIN 1.5 g/dL (0.7-1.3); FREE KAPPA LIGHT CHAINS 11.1 mg/L (3.3-19.4); FREE LAMBDA LIGHT CHAINS 39.4 mg/L (5.7-26.3); GAMMA GLOBULIN 0.5 g/dL (0.4-1.8); GLOBULIN, TOTAL 3.1 g/dL (2.2-3.9); KAPPA/LAMBDA RATIO 0.28 (0.26-1.65); M-SPIKE 0.7 g/dL (Not Observed)
== END | disposition home or self-care (01) ==
LOC: LAB 09:17
PROVIDERS: Internal Medicine; Internal Medicine Hematology & Oncology
DX: D47.2 Monoclonal gammopathy (principal); E78.2 Mixed hyperlipidemia; I10 Essential (primary) hypertension

== ENCOUNTER 2017-09-17 00:26 | Emergency (ER) | payer OTHER ==
[~2017-09-17] VITALS: Ht 160 cm; Wt 129.3 kg
[~2017-09-17 00:26] MED LIST changes: -KLOR-CON M1010 ME1 PO
[2017-09-17 00:58] LABS: BASO # 0.1 10*3/uL (0.0-0.1); BASO % 0.4 % (0.0-1.0); EOS # 0.2 10*3/uL (0.0-0.4); EOS % 1.4 % (1.0-4.0); HEMATOCRIT 45.2 % (37.0-47.0); HEMOGLOBIN 14.7 g/dl (12.0-16.0); LYMPH # 4.2 10*3/uL (1.3-4.4); LYMPH % 24.9 % (27.0-41.0); MEAN CELL VOLUME 86.9 fl (81.0-99.0); MEAN CORPUSCULAR HGB 28.3 pg (27.0-31.0); MEAN CORPUSCULAR HGB CONC 32.5 g/dl (33.0-37.0); MEAN PLATELET VOLUME 9.3 fl (9.6-12.3); MONO # 1.4 10*3/uL (0.1-1.0); MONO % 8.4 % (3.0-9.0); NEUT # 10.9 10*3/uL (2.3-7.9); NEUT % 64.3 % (47.0-73.0); PLATELET COUNT AUTOMATED 578 10*3/uL (130-400); WHITE BLOOD COUNT 16.9 10*3/uL (4.8-10.8)
[2017-09-17 01:15] LABS: ALBUMIN 3.5 gm/dl (3.1-4.5); ALKALINE PHOSPHATASE 83 U/L (45-117); BUN 16 mg/dl (7-24); CHLORIDE 109 mmol/L (98-107); CREATININE 0.79 mg/dL (0.55-1.02); POTASSIUM 3.7 mmol/L (3.5-5.1); SGOT/AST 8 IU/L (3-35); SGPT/ALT 19 U/L (12-78); SODIUM 144 mmol/L (136-145); TOTAL PROTEIN 7.5 gm/dL (6.4-8.2)
[2017-09-17 01:16] LABS: TROPONIN I < 0.015 ng/ml (<0.045)
[2017-09-17 01:45] LABS: BILIRUBIN NEGATIVE (NEGATIVE); BLOOD TRACE-LYSED (NEGATIVE); CLARITY CLEAR (CLEAR); COLOR YELLOW (YELLOW); GLUCOSE NEGATIVE (NEGATIVE); KETONE NEGATIVE (NEGATIVE); LEUKO ESTERASE NEGATIVE (NEGATIVE); NITRITE NEGATIVE (NEGATIVE); PH 6.5 (5.0-9.0); SPECIFIC GRAVITY <= 1.005 (1.005-1.030); UROBILINOGEN 0.2 E.U./dl (0.2-1.0)
[2017-09-17] MEDS ORDERED: KLOR-CON M1010 ME1 PO (01:52)
[2017-09-17 01:53] LABS: RBC 0-2 rbc/hpf (0-2)
== END 2017-09-17 03:17 | disposition home or self-care (01) ==
LOC: ED 00:26
PROVIDERS: Emergency Medicine Emergency Medical Services
DX: I48.91 Unspecified atrial fibrillation (principal); I10 Essential (primary) hypertension; E66.9 Obesity, unspecified; E11.9 Type 2 diabetes mellitus without complications; F17.200 Nicotine dependence, unspecified, uncomplicated; F41.9 Anxiety disorder, unspecified; Z88.5 Allergy status to narcotic agent; Z88.6 Allergy status to analgesic agent; Z79.899 Other long term (current) drug therapy; Z88.8 Allergy status to other drugs, medicaments and biological substances; Z91.041 Radiographic dye allergy status

== ENCOUNTER 2019-08-29 09:29 | Emergency (ER) | payer OTHER ==
[~2019-08-29] VITALS: Ht 160 cm; Wt 143.8 kg
[~2019-08-29 09:29] MED LIST changes: +KLOR-CON M1010 ME1 PO
[2019-08-29 10:36] LABS: BASO # 0.1 10*3/uL (0.0-0.1); BASO % 0.5 % (0.0-1.0); EOS # 0.1 10*3/uL (0.0-0.4); EOS % 0.5 % (1.0-4.0); HEMATOCRIT 47.2 % (37.0-47.0); LYMPH # 1.3 10*3/uL (1.3-4.4); LYMPH % 9.1 % (27.0-41.0); MEAN CELL VOLUME 87.6 fl (81.0-99.0); MEAN CORPUSCULAR HGB 27.6 pg (27.0-31.0); MEAN CORPUSCULAR HGB CONC 31.6 g/dl (33.0-37.0); MEAN PLATELET VOLUME 9.3 fl (9.6-12.3); MONO % 7.4 % (3.0-9.0); NEUT # 11.5 10*3/uL (2.3-7.9); NEUT % 81.8 % (47.0-73.0); PLATELET COUNT AUTOMATED 592 10*3/uL (130-400); RED BLOOD COUNT 5.39 10*6/uL (4.10-5.10); RED CELL DISTRI WIDTH 15.3 % (0-14.5)
[2019-08-29 10:46] LABS: ACT PARTIAL THROMBO TIME 36.5 SECONDS (20.0-32.1); INTERNATIONAL NORM RATIO 1.1 (2.0-3.5)
[2019-08-29 10:51] LABS: ALBUMIN 3.2 gm/dl (3.1-4.5); ALKALINE PHOSPHATASE 103 U/L (45-117); BUN 11 mg/dl (7-24); CHLORIDE 106 mmol/L (98-107); CREATININE 0.75 mg/dL (0.55-1.02); POTASSIUM 4.3 mmol/L (3.5-5.1); SGOT/AST 9 IU/L (3-35); SGPT/ALT 19 U/L (12-78); SODIUM 138 mmol/L (136-145); TOTAL PROTEIN 7.5 gm/dL (6.4-8.2)
[2019-08-29] MEDS ORDERED: PREDNISONE20 M1 PO (12:37)
[2019-08-29] MEDS ORDERED: ULTRAM50 MG PO (12:38)
== END 2019-08-29 12:53 | disposition home or self-care (01) ==
LOC: ED 09:29
PROVIDERS: Family Medicine
DX: M77.8 Other enthesopathies, not elsewhere classified (principal); Z88.8 Allergy status to other drugs, medicaments and biological substances; Z88.5 Allergy status to narcotic agent; Z79.899 Other long term (current) drug therapy

== ENCOUNTER → 2019-09-09 | Outpatient (CLI) | payer OTHER ==
[~2019-09-09] MED LIST changes: +ULTRAM50 MG PO
== END | disposition home or self-care (01) ==
LOC: MAMMO 10:35
DX: Z12.31 Encounter for screening mammogram for malignant neoplasm of breast (principal)

== ENCOUNTER → 2019-10-18 | Outpatient (CLI) | payer OTHER ==
[2019-10-18 11:10] LABS: BASO # 0.1 10*3/uL (0.0-0.1); BASO % 0.5 % (0.0-1.0); EOS # 0.1 10*3/uL (0.0-0.4); EOS % 0.8 % (1.0-4.0); HEMATOCRIT 45.1 % (37.0-47.0); LYMPH # 1.8 10*3/uL (1.3-4.4); LYMPH % 12.8 % (27.0-41.0); MEAN CELL VOLUME 84.8 fl (81.0-99.0); MEAN CORPUSCULAR HGB 26.7 pg (27.0-31.0); MEAN CORPUSCULAR HGB CONC 31.5 g/dl (33.0-37.0); MEAN PLATELET VOLUME 9.2 fl (9.6-12.3); MONO # 1.3 10*3/uL (0.1-1.0); MONO % 9.6 % (3.0-9.0); NEUT # 10.4 10*3/uL (2.3-7.9); NEUT % 75.7 % (47.0-73.0); PLATELET COUNT AUTOMATED 580 10*3/uL (130-400); RED BLOOD COUNT 5.32 10*6/uL (4.10-5.10); RED CELL DISTRI WIDTH 15.9 % (0-14.5); WHITE BLOOD COUNT 13.7 10*3/uL (4.8-10.8)
[2019-10-18 11:50] LABS: ALBUMIN 3.1 gm/dl (3.1-4.5); ALKALINE PHOSPHATASE 98 U/L (45-117); BUN 12 mg/dl (7-24); CHLORIDE 105 mmol/L (98-107); CREATININE 0.73 mg/dL (0.55-1.02); POTASSIUM 3.8 mmol/L (3.5-5.1); SGOT/AST 10 IU/L (3-35); SGPT/ALT 16 U/L (12-78); SODIUM 137 mmol/L (136-145); TOTAL PROTEIN 7.5 gm/dL (6.4-8.2)
[2019-10-19 06:07] LABS: TOTAL PROTEIN, SERUM 6.5 g/dL (6.0-8.5)
[2019-10-19 15:07] LABS: ALBUMIN 3.3 g/dL (2.9-4.4); ALPHA-1-GLOBULIN 0.3 g/dL (0.0-0.4); ALPHA-2-GLOBULIN 0.8 g/dL (0.4-1.0); BETA GLOBULIN 1.6 g/dL (0.7-1.3); GAMMA GLOBULIN 0.5 g/dL (0.4-1.8); GLOBULIN, TOTAL 3.2 g/dL (2.2-3.9); M-SPIKE 0.7 g/dL (Not Observed)
[2019-10-19 18:06] LABS: FREE KAPPA LIGHT CHAINS 12.9 mg/L (3.3-19.4); FREE LAMBDA LIGHT CHAINS 49.4 mg/L (5.7-26.3); KAPPA/LAMBDA RATIO 0.26 (0.26-1.65)
== END | disposition home or self-care (01) ==
LOC: LAB 10:56
PROVIDERS: Internal Medicine Hematology & Oncology
DX: D47.2 Monoclonal gammopathy (principal)

== ENCOUNTER 2019-10-28 11:18 | Emergency (ER) | payer OTHER ==
[~2019-10-28] VITALS: Ht 162.5 cm; Wt 148.3 kg
== END 2019-10-28 14:19 | disposition home or self-care (01) ==
LOC: ED 11:18
DX: S86.911A Strain of unspecified muscle(s) and tendon(s) at lower leg level, right leg, initial encounter (principal); I10 Essential (primary) hypertension; I48.91 Unspecified atrial fibrillation; F17.200 Nicotine dependence, unspecified, uncomplicated; Z88.1 Allergy status to other antibiotic agents; Z88.6 Allergy status to analgesic agent; Z88.8 Allergy status to other drugs, medicaments and biological substances; Z79.899 Other long term (current) drug therapy; X58.XXXA Exposure to other specified factors, initial encounter; Y93.89 Activity, other specified; Y92.89 Other specified places as the place of occurrence of the external cause; Y99.8 Other external cause status

== ENCOUNTER → 2020-07-04 | Outpatient (CLI) | payer OTHER | END | disposition home or self-care (01) | LOC: RAD 10:22 | PROVIDERS: ATTEND Physician Assistant | DX: J43.9 Emphysema, unspecified (principal); F17.210 Nicotine dependence, cigarettes, uncomplicated ==

== ENCOUNTER → 2020-10-16 | Outpatient (CLI) | payer OTHER ==
[2020-10-16 14:51] LABS: HEMATOCRIT 44.1 % (37.0-47.0); MEAN CELL VOLUME 83.1 fl (81.0-99.0); MEAN CORPUSCULAR HGB 26.4 pg (27.0-31.0); MEAN CORPUSCULAR HGB CONC 31.7 g/dl (33.0-37.0); MEAN PLATELET VOLUME 8.8 fl (9.6-12.3); RED BLOOD COUNT 5.31 10*6/uL (4.10-5.10); RED CELL DISTRI WIDTH 15.5 % (0-14.5); WHITE BLOOD COUNT 16.6 10*3/uL (4.8-10.8)
[2020-10-16 15:07] LABS: ALBUMIN 3.2 gm/dl (3.1-4.5); ALKALINE PHOSPHATASE 104 U/L (45-117); BUN 15 mg/dl (7-24); CHLORIDE 100 mmol/L (98-107); CREATININE 0.78 mg/dL (0.55-1.02); POTASSIUM 3.8 mmol/L (3.5-5.1); SGOT/AST 6 IU/L (3-35); SGPT/ALT 15 U/L (12-78); SODIUM 133 mmol/L (136-145); TOTAL PROTEIN 7.9 gm/dL (6.4-8.2)
[2020-10-17 10:08] LABS: TOTAL PROTEIN, SERUM 7.1 g/dL (6.0-8.5)
[2020-10-17 15:11] LABS: A/G RATIO 0.9 (0.7-1.7); ALBUMIN 3.3 g/dL (2.9-4.4); ALPHA-1-GLOBULIN 0.3 g/dL (0.0-0.4); FREE KAPPA LIGHT CHAINS 19.5 mg/L (3.3-19.4); FREE LAMBDA LIGHT CHAINS 128.4 mg/L (5.7-26.3); GAMMA GLOBULIN 0.5 g/dL (0.4-1.8); GLOBULIN, TOTAL 3.8 g/dL (2.2-3.9); KAPPA/LAMBDA RATIO 0.15 (0.26-1.65); M-SPIKE 0.9 g/dL (Not Observed)
== END | disposition home or self-care (01) ==
LOC: LAB 14:34
PROVIDERS: ATTEND Internal Medicine Hematology & Oncology
DX: D47.2 Monoclonal gammopathy (principal)

== ENCOUNTER → 2021-01-29 | Outpatient (CLI) | payer OTHER | END | disposition home or self-care (01) | LOC: MAMMO 12-25 10:00 | PROVIDERS: ATTEND Physician Assistant | DX: Z12.31 Encounter for screening mammogram for malignant neoplasm of breast (principal) ==

== ENCOUNTER → 2021-04-26 | Outpatient (CLI) | payer OTHER | LOC: WOUNDCARE 01:23 | PROVIDERS: ATTEND Nurse Practitioner Family | DX: L97.822 Non-pressure chronic ulcer of other part of left lower leg with fat layer exposed (principal); I10 Essential (primary) hypertension; I48.91 Unspecified atrial fibrillation; J44.9 Chronic obstructive pulmonary disease, unspecified; G47.33 Obstructive sleep apnea (adult) (pediatric); E55.9 Vitamin D deficiency, unspecified; E78.5 Hyperlipidemia, unspecified; E07.9 Disorder of thyroid, unspecified; G62.9 Polyneuropathy, unspecified; F17.200 Nicotine dependence, unspecified, uncomplicated ==

== ENCOUNTER → 2021-05-01 | Outpatient (CLI) | payer OTHER | END | disposition home or self-care (01) | LOC: US 14:44 | PROVIDERS: ATTEND Nurse Practitioner Family | DX: I70.293 Other atherosclerosis of native arteries of extremities, bilateral legs (principal); L97.929 Non-pressure chronic ulcer of unspecified part of left lower leg with unspecified severity ==

== ENCOUNTER → 2021-05-02 | Outpatient (CLI) | payer OTHER | LOC: WOUNDCARE 00:55 | PROVIDERS: ATTEND Nurse Practitioner Family | DX: L97.822 Non-pressure chronic ulcer of other part of left lower leg with fat layer exposed (principal); R22.43 Localized swelling, mass and lump, lower limb, bilateral; I10 Essential (primary) hypertension; I48.91 Unspecified atrial fibrillation; J44.9 Chronic obstructive pulmonary disease, unspecified; G47.33 Obstructive sleep apnea (adult) (pediatric); E55.9 Vitamin D deficiency, unspecified; E78.5 Hyperlipidemia, unspecified; G62.9 Polyneuropathy, unspecified; F17.200 Nicotine dependence, unspecified, uncomplicated ==

== ENCOUNTER → 2021-05-09 | Outpatient (CLI) | payer OTHER | LOC: WOUNDCARE 01:10 | PROVIDERS: ATTEND Nurse Practitioner Family | DX: L97.822 Non-pressure chronic ulcer of other part of left lower leg with fat layer exposed (principal); R22.43 Localized swelling, mass and lump, lower limb, bilateral; I10 Essential (primary) hypertension; I48.91 Unspecified atrial fibrillation; J44.9 Chronic obstructive pulmonary disease, unspecified; G47.33 Obstructive sleep apnea (adult) (pediatric); E55.9 Vitamin D deficiency, unspecified; E78.5 Hyperlipidemia, unspecified; G62.9 Polyneuropathy, unspecified; F17.200 Nicotine dependence, unspecified, uncomplicated ==

== ENCOUNTER → 2021-05-16 | Outpatient (CLI) | payer OTHER | LOC: WOUNDCARE 00:47 | PROVIDERS: ATTEND Nurse Practitioner Family | DX: L97.822 Non-pressure chronic ulcer of other part of left lower leg with fat layer exposed (principal); R22.43 Localized swelling, mass and lump, lower limb, bilateral; I10 Essential (primary) hypertension; I48.91 Unspecified atrial fibrillation; J44.9 Chronic obstructive pulmonary disease, unspecified; G47.33 Obstructive sleep apnea (adult) (pediatric); E55.9 Vitamin D deficiency, unspecified; E07.9 Disorder of thyroid, unspecified; E78.5 Hyperlipidemia, unspecified; G62.9 Polyneuropathy, unspecified; F17.200 Nicotine dependence, unspecified, uncomplicated ==

== ENCOUNTER → 2021-05-23 | Outpatient (CLI) | payer OTHER | LOC: WOUNDCARE 00:48 | PROVIDERS: ATTEND Nurse Practitioner Family | DX: L97.822 Non-pressure chronic ulcer of other part of left lower leg with fat layer exposed (principal); R22.43 Localized swelling, mass and lump, lower limb, bilateral; I10 Essential (primary) hypertension; I48.91 Unspecified atrial fibrillation; J44.9 Chronic obstructive pulmonary disease, unspecified; G47.33 Obstructive sleep apnea (adult) (pediatric); E55.9 Vitamin D deficiency, unspecified; E07.9 Disorder of thyroid, unspecified; E78.5 Hyperlipidemia, unspecified; G62.9 Polyneuropathy, unspecified; F17.200 Nicotine dependence, unspecified, uncomplicated ==

== ENCOUNTER → 2021-06-06 | Outpatient (CLI) | payer OTHER | LOC: WOUNDCARE 00:38 | PROVIDERS: ATTEND Nurse Practitioner Family | DX: L97.822 Non-pressure chronic ulcer of other part of left lower leg with fat layer exposed (principal); R22.43 Localized swelling, mass and lump, lower limb, bilateral; I10 Essential (primary) hypertension; I48.91 Unspecified atrial fibrillation; J44.9 Chronic obstructive pulmonary disease, unspecified; G47.33 Obstructive sleep apnea (adult) (pediatric); E55.9 Vitamin D deficiency, unspecified; E07.9 Disorder of thyroid, unspecified; E78.5 Hyperlipidemia, unspecified; G62.9 Polyneuropathy, unspecified; F17.200 Nicotine dependence, unspecified, uncomplicated ==

== ENCOUNTER → 2021-06-08 | Outpatient (CLI) | payer OTHER | LOC: WOUNDCARE 00:58 | PROVIDERS: ATTEND Nurse Practitioner Family | DX: L97.822 Non-pressure chronic ulcer of other part of left lower leg with fat layer exposed (principal); E07.89 Other specified disorders of thyroid; E78.5 Hyperlipidemia, unspecified; G47.33 Obstructive sleep apnea (adult) (pediatric); G62.9 Polyneuropathy, unspecified; I48.91 Unspecified atrial fibrillation; I10 Essential (primary) hypertension; R22.43 Localized swelling, mass and lump, lower limb, bilateral; F17.200 Nicotine dependence, unspecified, uncomplicated; Z71.6 Tobacco abuse counseling ==

== ENCOUNTER → 2021-06-12 | Outpatient (CLI) | payer OTHER | LOC: WOUNDCARE 02:23 | PROVIDERS: ATTEND Surgery | DX: L97.822 Non-pressure chronic ulcer of other part of left lower leg with fat layer exposed (principal); E07.89 Other specified disorders of thyroid; E78.5 Hyperlipidemia, unspecified; G47.33 Obstructive sleep apnea (adult) (pediatric); G62.9 Polyneuropathy, unspecified; I48.91 Unspecified atrial fibrillation; I10 Essential (primary) hypertension; R22.43 Localized swelling, mass and lump, lower limb, bilateral; F17.200 Nicotine dependence, unspecified, uncomplicated; Z71.6 Tobacco abuse counseling ==

== ENCOUNTER → 2021-06-20 | Outpatient (CLI) | payer OTHER | LOC: WOUNDCARE 02:00 | PROVIDERS: ATTEND Nurse Practitioner Family | DX: L97.822 Non-pressure chronic ulcer of other part of left lower leg with fat layer exposed (principal); E07.89 Other specified disorders of thyroid; E78.5 Hyperlipidemia, unspecified; G47.33 Obstructive sleep apnea (adult) (pediatric); G62.9 Polyneuropathy, unspecified; I48.91 Unspecified atrial fibrillation; I10 Essential (primary) hypertension; R22.43 Localized swelling, mass and lump, lower limb, bilateral; F17.200 Nicotine dependence, unspecified, uncomplicated; Z71.6 Tobacco abuse counseling ==

== ENCOUNTER → 2021-10-15 | Outpatient (CLI) | payer OTHER ==
[2021-10-15 12:46] LABS: BASO # 0.1 10*3/uL (0.0-0.1); BASO % 0.8 % (0.0-1.0); EOS # 0.3 10*3/uL (0.0-0.4); EOS % 3.3 % (1.0-4.0); HEMATOCRIT 45.8 % (37.0-47.0); LYMPH % 19.4 % (27.0-41.0); MEAN CELL VOLUME 81.6 fl (81.0-99.0); MEAN CORPUSCULAR HGB 26.2 pg (27.0-31.0); MEAN CORPUSCULAR HGB CONC 32.1 g/dl (33.0-37.0); MEAN PLATELET VOLUME 9.1 fl (9.6-12.3); MONO # 1.2 10*3/uL (0.1-1.0); NEUT # 6.6 10*3/uL (2.3-7.9); NEUT % 63.8 % (47.0-73.0); PLATELET COUNT AUTOMATED 519 10*3/uL (130-400); RED BLOOD COUNT 5.61 10*6/uL (4.10-5.10); RED CELL DISTRI WIDTH 17.7 % (0-14.5); WHITE BLOOD COUNT 10.4 10*3/uL (4.8-10.8)
[2021-10-15 13:08] LABS: ALKALINE PHOSPHATASE 104 U/L (45-117); BUN 14 mg/dl (7-24); CHLORIDE 101 mmol/L (98-107); CREATININE 0.88 mg/dL (0.55-1.02); POTASSIUM 3.7 mmol/L (3.5-5.1); SGOT/AST 11 IU/L (3-35); SGPT/ALT 17 U/L (12-78); SODIUM 136 mmol/L (136-145); TOTAL PROTEIN 7.9 gm/dL (6.4-8.2)
[2021-10-16 05:06] LABS: TOTAL PROTEIN, SERUM 7.2 g/dL (6.0-8.5)
[2021-10-16 14:07] LABS: A/G RATIO 0.8 (0.7-1.7); ALBUMIN 3.2 g/dL (2.9-4.4); ALPHA-1-GLOBULIN 0.3 g/dL (0.0-0.4); GAMMA GLOBULIN 0.8 g/dL (0.4-1.8); M-SPIKE 1.1 g/dL (Not Observed)
== END ==
LOC: LAB 12:15
PROVIDERS: ATTEND Internal Medicine Hematology & Oncology
DX: D47.2 Monoclonal gammopathy (principal)

== ENCOUNTER → 2022-01-14 | Outpatient (CLI) | payer OTHER ==
[2022-01-14 13:32] LABS: BASO # 0.1 10*3/uL (0.0-0.1); BASO % 0.4 % (0.0-1.0); EOS # 0.2 10*3/uL (0.0-0.4); EOS % 1.6 % (1.0-4.0); HEMATOCRIT 47.9 % (37.0-47.0); LYMPH # 2.5 10*3/uL (1.3-4.4); LYMPH % 17.9 % (27.0-41.0); MEAN CELL VOLUME 82.3 fl (81.0-99.0); MEAN CORPUSCULAR HGB 26.3 pg (27.0-31.0); MEAN CORPUSCULAR HGB CONC 31.9 g/dl (33.0-37.0); MEAN PLATELET VOLUME 9.4 fl (9.6-12.3); MONO # 1.4 10*3/uL (0.1-1.0); NEUT # 9.7 10*3/uL (2.3-7.9); NEUT % 69.3 % (47.0-73.0); PLATELET COUNT AUTOMATED 558 10*3/uL (130-400); RED BLOOD COUNT 5.82 10*6/uL (4.10-5.10)
[2022-01-14 13:50] LABS: ALKALINE PHOSPHATASE 119 U/L (45-117); BUN 16 mg/dl (7-24); CHLORIDE 102 mmol/L (98-107); CREATININE 0.85 mg/dL (0.55-1.02); POTASSIUM 3.9 mmol/L (3.5-5.1); SGOT/AST 9 IU/L (3-35); SGPT/ALT 21 U/L (12-78); SODIUM 138 mmol/L (136-145); TOTAL PROTEIN 8.2 gm/dL (6.4-8.2)
[2022-01-15 06:07] LABS: TOTAL PROTEIN, SERUM 7.5 g/dL (6.0-8.5)
[2022-01-15 14:07] LABS: A/G RATIO 0.7 (0.7-1.7); ALBUMIN 3.2 g/dL (2.9-4.4); ALPHA-1-GLOBULIN 0.3 g/dL (0.0-0.4); BETA GLOBULIN 2.2 g/dL (0.7-1.3); GAMMA GLOBULIN 0.8 g/dL (0.4-1.8); GLOBULIN, TOTAL 4.3 g/dL (2.2-3.9); M-SPIKE 1.2 g/dL (Not Observed)
[2022-01-16 00:06] LABS: FREE KAPPA LIGHT CHAINS 37.4 mg/L (3.3-19.4); FREE LAMBDA LIGHT CHAINS 126.2 mg/L (5.7-26.3); KAPPA/LAMBDA RATIO 0.3 (0.26-1.65)
[2022-01-16 15:07] LABS: BETA-2 MICROGLOBULIN 2.5 mg/L (0.6-2.4)
== END | disposition home or self-care (01) ==
LOC: LAB 12:52
PROVIDERS: ATTEND Internal Medicine Hematology & Oncology
DX: D47.3 Essential (hemorrhagic) thrombocythemia (principal); D47.1 Chronic myeloproliferative disease

== ENCOUNTER → 2022-10-09 | Outpatient (CLI) | payer OTHER | END | disposition home or self-care (01) | LOC: MAMMO 10:56 | PROVIDERS: ATTEND Physician Assistant | DX: Z12.31 Encounter for screening mammogram for malignant neoplasm of breast (principal) ==

== ENCOUNTER → 2023-06-24 | Outpatient (CLI) | payer OTHER ==
[2023-06-24 11:22] LABS: BASO # 0.1 10*3/uL (0.0-0.1); BASO % 0.6 % (0.0-1.0); EOS # 0.3 10*3/uL (0.0-0.4); EOS % 2.3 % (1.0-4.0); HEMATOCRIT 44.6 % (37.0-47.0); LYMPH # 2.4 10*3/uL (1.3-4.4); MEAN CORPUSCULAR HGB 26.6 pg (27.0-31.0); MEAN CORPUSCULAR HGB CONC 31.6 g/dl (33.0-37.0); MEAN PLATELET VOLUME 9.1 fl (9.6-12.3); MONO % 8.6 % (3.0-9.0); NEUT # 8.2 10*3/uL (2.3-7.9); NEUT % 67.8 % (47.0-73.0); PLATELET COUNT AUTOMATED 567 10*3/uL (130-400); RED BLOOD COUNT 5.31 10*6/uL (4.10-5.10); RED CELL DISTRI WIDTH 17.4 % (0-14.5); WHITE BLOOD COUNT 12.1 10*3/uL (4.8-10.8)
[2023-06-24 11:38] LABS: BILIRUBIN Negative (Negative); BLOOD 3+ (Negative); CLARITY Turbid (Clear); COLOR Dark Yellow (Yellow); GLUCOSE Negative (Negative); KETONE Trace (Negative); LEUKO ESTERASE 3+ (Negative); NITRITE Negative (Negative); PH 5.5 (4.5-8.0)
[2023-06-24 11:47] LABS: ALKALINE PHOSPHATASE 89 U/L (46-116); BUN 11 mg/dl (9-23); CHLORIDE 99 mmol/L (98-107); SGPT/ALT 9 U/L (5-49); TOTAL PROTEIN 7.7 gm/dL (6.0-8.0)
[2023-06-24 11:55] LABS: WBC TNTC wbc/hpf (0-5)
== END | disposition home or self-care (01) ==
LOC: LAB 10:30
PROVIDERS: ATTEND Urology
DX: N39.0 Urinary tract infection, site not specified (principal); R35.0 Frequency of micturition

== ENCOUNTER → 2023-06-26 | Outpatient (CLI) | payer OTHER ==
[~2023-06-26] MED LIST changes: +IOHEXOL 9 MG/ML (IODINE) ORAL SOLUTION PO ONE
== END | disposition home or self-care (01) ==
LOC: CT 02:05
PROVIDERS: ATTEND Urology
DX: K57.30 Diverticulosis of large intestine without perforation or abscess without bleeding (principal); M47.816 Spondylosis without myelopathy or radiculopathy, lumbar region; N28.89 Other specified disorders of kidney and ureter

== ENCOUNTER → 2023-09-27 | Outpatient (CLI) | payer OTHER ==
[~2023-09-27] MED LIST changes: -IOHEXOL 9 MG/ML (IODINE) ORAL SOLUTION PO ONE
[2023-09-27 09:32] LABS: BASO # 0.1 10*3/uL (0.0-0.1); BASO % 0.5 % (0.0-1.0); EOS # 0.4 10*3/uL (0.0-0.4); EOS % 3.1 % (1.0-4.0); HEMATOCRIT 45.7 % (37.0-47.0); LYMPH # 2.4 10*3/uL (1.3-4.4); LYMPH % 17.7 % (27.0-41.0); MEAN CELL VOLUME 85.6 fl (81.0-99.0); MEAN CORPUSCULAR HGB CONC 31.5 g/dl (33.0-37.0); MEAN PLATELET VOLUME 9.2 fl (9.6-12.3); MONO # 1.4 10*3/uL (0.1-1.0); MONO % 10.1 % (3.0-9.0); NEUT # 9.3 10*3/uL (2.3-7.9); NEUT % 67.9 % (47.0-73.0); PLATELET COUNT AUTOMATED 539 10*3/uL (130-400); RED BLOOD COUNT 5.34 10*6/uL (4.10-5.10); RED CELL DISTRI WIDTH 16.7 % (0-14.5); WHITE BLOOD COUNT 13.8 10*3/uL (4.8-10.8)
[2023-09-27 09:34] LABS: BILIRUBIN Negative (Negative); BLOOD 2+ (Negative); CLARITY Turbid (Clear); COLOR Yellow (Yellow); GLUCOSE Negative (Negative); KETONE Negative (Negative); LEUKO ESTERASE 3+ (Negative); NITRITE Negative (Negative); UROBILINOGEN 0.2 E.U./dl (0.0-1.0)
[2023-09-27 09:43] LABS: ACT PARTIAL THROMBO TIME 31.6 SECONDS (20.0-32.1)
[2023-09-27 10:24] LABS: ALKALINE PHOSPHATASE 104 U/L (46-116); BUN 19 mg/dl (9-23); CHLORIDE 101 mmol/L (98-107); POTASSIUM 3.8 mmol/L (3.4-5.1); SGPT/ALT 10 U/L (5-49); TOTAL PROTEIN 7.9 gm/dL (6.0-8.0)
[2023-09-27 10:53] LABS: WBC TNTC wbc/hpf (0-5)
[2023-09-27 10:55] LABS: BACTERIA 2+; EPITHELIAL CELLS 0-2
== END ==
LOC: LAB 08:57
PROVIDERS: ATTEND Urology
DX: Z01.818 Encounter for other preprocedural examination (principal); I10 Essential (primary) hypertension

== ENCOUNTER → 2023-11-05 | Outpatient (CLI) | payer OTHER ==
[2023-11-05 14:22] LABS: HEMATOCRIT 45.1 % (37.0-47.0); MANUAL DIFF REFLEX YES; MEAN CELL VOLUME 82.4 fl (81.0-99.0); MEAN CORPUSCULAR HGB 27.1 pg (27.0-31.0); MEAN CORPUSCULAR HGB CONC 32.8 g/dl (33.0-37.0); MEAN PLATELET VOLUME 9.2 fl (9.6-12.3); PLATELET COUNT AUTOMATED 559 10*3/uL (130-400); RED BLOOD COUNT 5.47 10*6/uL (4.10-5.10); RED CELL DISTRI WIDTH 16.4 % (0-14.5); WHITE BLOOD COUNT 12.7 10*3/uL (4.8-10.8)
[2023-11-05 14:42] LABS: ALKALINE PHOSPHATASE 103 U/L (46-116); BUN 14 mg/dl (9-23); CHLORIDE 99 mmol/L (98-107); POTASSIUM 3.8 mmol/L (3.4-5.1); SGPT/ALT 11 U/L (5-49); TOTAL PROTEIN 7.9 gm/dL (6.0-8.0)
[2023-11-05 15:25] LABS: PLATELET SUFFICIENCY HIGH (NORMAL); TOTAL CELLS COUNTED 100 #CELLS
[2023-11-06 06:09] LABS: TOTAL PROTEIN, SERUM 7.3 g/dL (6.0-8.5)
[2023-11-06 08:10] LABS: IMMUNOGLOBULIN G, QNT 1641 mg/dL (586-1602); IMMUNOGLOBULIN M, QNT 50 mg/dL (26-217)
[2023-11-06 13:07] LABS: FREE KAPPA LIGHT CHAINS 41.7 mg/L (3.3-19.4); FREE LAMBDA LIGHT CHAINS 165.8 mg/L (5.7-26.3); KAPPA/LAMBDA RATIO 0.25 (0.26-1.65)
[2023-11-06 15:08] LABS: A/G RATIO 0.7 (0.7-1.7); ALBUMIN 3.1 g/dL (2.9-4.4); ALPHA-1-GLOBULIN 0.3 g/dL (0.0-0.4); BETA GLOBULIN 1.9 g/dL (0.7-1.3); GAMMA GLOBULIN 0.9 g/dL (0.4-1.8); GLOBULIN, TOTAL 4.2 g/dL (2.2-3.9)
[2023-11-08 07:07] LABS: BETA-2 MICROGLOBULIN 2.7 mg/L (0.6-2.4)
== END | disposition home or self-care (01) ==
LOC: LAB 13:53
PROVIDERS: ATTEND Physician Assistant
DX: D47.2 Monoclonal gammopathy (principal); D47.3 Essential (hemorrhagic) thrombocythemia

== ENCOUNTER → 2024-12-07 | Outpatient (CLI) | payer MEDICARE, OTHER ==
[~2024-12-07] MED LIST changes: +ALDACTONE25 MG PO; +AMMONIUM LACTA227 GM T; +LOSARTAN POTAS100 M1 PO; +METOPROLOL SUCC50 M1 PO; +SEPTDS PO; +TORSEMIDE20 MG PO
[2024-12-07 15:19] LABS: MANUAL DIFF REFLEX YES; MEAN CELL VOLUME 80.8 fl (81.0-99.0); MEAN CORPUSCULAR HGB 25.3 pg (27.0-31.0); MEAN PLATELET VOLUME 8.6 fl (9.6-12.3); NUCLEATED RED BLOOD CELL 0.0 % (0.0-0.0); NUCLEATED RED BLOOD CELL 0.0 10*3/uL (0.0-0.0); PLATELET COUNT AUTOMATED 655 10*3/uL (130-400); RED CELL DISTRI WIDTH 17.8 % (0-14.5)
[2024-12-07 15:42] LABS: BUN 16 mg/dl (9-23); SGPT/ALT 7 U/L (5-49)
[2024-12-07 15:44] LABS: PLATELET SUFFICIENCY HIGH (NORMAL)
[2024-12-10 07:06] LABS: BETA-2 MICROGLOBULIN 4.0 mg/L (0.6-2.4)
== END ==
LOC: LAB 14:52
PROVIDERS: ATTEND Internal Medicine Hematology & Oncology
DX: D47.2 Monoclonal gammopathy (principal); D47.3 Essential (hemorrhagic) thrombocythemia

== ENCOUNTER 2025-01-04 14:45 | Emergency (ER) | payer MEDICARE, OTHER ==
[~2025-01-04] VITALS: Ht 160 cm; Wt 142.9 kg
[2025-01-04] MEDS ORDERED: Ondansetron Hydrochloride 4 MG/2 ML VIAL IV ONE (15:15)
[2025-01-04] MEDS ORDERED: SODIUM CHLORIDE 0.9% 1,000 ML IV ONE ×2 (15:15→19:20)
[2025-01-04] MEDS ORDERED: IOHEXOL 300 MG/ML 100 ML VIAL IV ONE (15:25)
[2025-01-04 15:51] LABS: MEAN CELL VOLUME 79.4 fl (81.0-99.0); MEAN CORPUSCULAR HGB 24.8 pg (27.0-31.0); MEAN PLATELET VOLUME 9.0 fl (9.6-12.3); NUCLEATED RED BLOOD CELL 0.0 % (0.0-0.0); NUCLEATED RED BLOOD CELL 0.0 10*3/uL (0.0-0.0); PLATELET COUNT AUTOMATED 660 10*3/uL (130-400); RED CELL DISTRI WIDTH 16.7 % (0-14.5)
[2025-01-04 16:04] LABS: MANUAL DIFF REFLEX YES
[2025-01-04 16:10] LABS: BUN 37.0 mg/dl (9-23)
[2025-01-04 16:28] LABS: PLATELET SUFFICIENCY HIGH (NORMAL)
[2025-01-04] MEDS ORDERED: Iodixanol 320 100 ML VIAL IV ONE (17:10)
[2025-01-04] MEDS ORDERED: SODIUM CHLORIDE 0.9% 1,000 ML IV SCH (20:05)
[2025-01-05] MEDS ORDERED: Piperacillin Sodium/Tazobact 2.25 GM in SODIUM CHLORIDE 0.9% 50 ML IV ONE (04:50)
[2025-01-05] MEDS ORDERED: SODIUM CHLORIDE 0.9% 1,000 ML IV ONE (06:00)
[2025-01-05] MEDS ORDERED: PIPERACILLIN SODIUM IV ONE (08:14)
[2025-01-05] MEDS ORDERED: TAZOBACT IV ONE (08:14)
== END 2025-01-05 13:08 | disposition short-term general hospital (02) ==
LOC: ED 14:45
PROVIDERS: Nurse Practitioner Family
DX: K65.1 Peritoneal abscess (principal); N17.9 Acute kidney failure, unspecified; A41.9 Sepsis, unspecified organism; N32.2 Vesical fistula, not elsewhere classified; I48.91 Unspecified atrial fibrillation; I10 Essential (primary) hypertension; F41.9 Anxiety disorder, unspecified; F17.210 Nicotine dependence, cigarettes, uncomplicated; Z87.440 Personal history of urinary (tract) infections; Z88.5 Allergy status to narcotic agent; Z88.8 Allergy status to other drugs, medicaments and biological substances

== ENCOUNTER 2025-02-11 18:05 | Inpatient (IN) | payer MEDICARE, OTHER ==
[~2025-02-11] VITALS: Ht 160 cm; Wt 122.6 kg
[~2025-02-11 18:05] MED LIST changes: -VITAMIN D31000 I2 PO; +VITAMIN D325 MCG PO
[2025-02-11] MEDS ORDERED: SODIUM CHLORIDE 0.9% 1,000 ML IV ONE (18:35)
[2025-02-11 18:37] VITALS: BP 113/74
[2025-02-11 18:45] LABS: BASO # 0.2 10*3/uL (0.0-0.1); BASO % 1.3 % (0.0-1.0); EOS # 0.9 10*3/uL (0.0-0.4); EOS % 6.8 % (1.0-4.0); MEAN CELL VOLUME 84.6 fl (81.0-99.0); MEAN CORPUSCULAR HGB 26.0 pg (27.0-31.0); MEAN PLATELET VOLUME 9.1 fl (9.6-12.3); MONO # 1.4 10*3/uL (0.1-1.0); MONO % 11.3 % (3.0-9.0); NEUT # 8.0 10*3/uL (2.3-7.9); NEUT % 63.0 % (47.0-73.0); NUCLEATED RED BLOOD CELL 0.0 % (0.0-0.0); NUCLEATED RED BLOOD CELL 0.0 10*3/uL (0.0-0.0); PLATELET COUNT AUTOMATED 678 10*3/uL (130-400); RED CELL DISTRI WIDTH 19.5 % (0-14.5)
[2025-02-11 19:07] LABS: BUN 51.0 mg/dl (9-23); SGPT/ALT 24.0 U/L (5-49)
[2025-02-11 19:32] VITALS: BP 113/74; BP 116/54
[2025-02-11] MEDS ORDERED: VITAMIN E200 UNI3 PO (20:52)
[2025-02-11] MEDS ORDERED: 8 HOUR PAIN RE650 M1 PO (20:54)
[2025-02-11] MEDS ORDERED: MECLIZINE HYD12.5 MG PO (20:57)
[2025-02-11] MEDS ORDERED: GARLIC OIL1000 M1 PO (20:58)
[2025-02-11] MEDS ORDERED: DAILY PROBIOTI250 MG PO (20:58)
[2025-02-11] MEDS ORDERED: Synthroid,Levo25 MCG PO (20:59)
[2025-02-11] MEDS ORDERED: ONDANSETRON HYDR4 MG PO (21:00)
[2025-02-11] MEDS ORDERED: IRON325 M1 PO (21:00)
[2025-02-11] MEDS ORDERED: 8 HOUR650 MG PO (21:04)
[2025-02-11 22:13] VITALS: BP 115/73
[2025-02-12] MEDS ORDERED: ACETAMINOPHEN 650 MG SUPP R PRN (01:10)
[2025-02-12] MEDS ORDERED: BISACODYL 10 MG SUPP R PRN (01:10)
[2025-02-12] MEDS ORDERED: Ondansetron Hydrochloride 4 MG/2 ML VIAL IV PRN (01:10)
[2025-02-12] MEDS ORDERED: BISACODYL 5 MG TAB PO PRN (01:10)
[2025-02-12] MEDS ORDERED: ACETAMINOPHEN 325 MG TAB PO PRN (01:10)
[2025-02-12 02:22] VITALS: BP 143/84
[2025-02-12 03:30] VITALS: BP 118/64
[2025-02-12] MEDS ORDERED: SODIUM CHLORIDE 0.9% 500 ML IV ONE (03:35)
[2025-02-12] MEDS ORDERED: METOPROLOL SUCC25 M2 PO (04:01)
[2025-02-12] MEDS ORDERED: Menthol/Zinc Oxide 4 GM THIN T PRN (04:30)
[2025-02-12 06:12] LABS: BASO # 0.2 10*3/uL (0.0-0.1); BASO % 1.6 % (0.0-1.0); EOS # 1.1 10*3/uL (0.0-0.4); EOS % 11.5 % (1.0-4.0); MEAN CELL VOLUME 84.1 fl (81.0-99.0); MEAN CORPUSCULAR HGB 25.6 pg (27.0-31.0); MEAN PLATELET VOLUME 9.3 fl (9.6-12.3); MONO # 1.3 10*3/uL (0.1-1.0); MONO % 13.5 % (3.0-9.0); NEUT # 5.1 10*3/uL (2.3-7.9); NEUT % 53.4 % (47.0-73.0); NUCLEATED RED BLOOD CELL 0.0 % (0.0-0.0); NUCLEATED RED BLOOD CELL 0.0 10*3/uL (0.0-0.0); PLATELET COUNT AUTOMATED 627 10*3/uL (130-400); RED CELL DISTRI WIDTH 19.8 % (0-14.5)
[2025-02-12 06:33] LABS: ACT PARTIAL THROMBO TIME 27.4 SECONDS (20.0-32.1)
[2025-02-12 06:45] LABS: BUN 53.0 mg/dl (9-23); FREE T4 1.78 ng/dl (0.89-1.76); LDL CHOLESTEROL 66.0 mg/dL (9-159); SGPT/ALT 22.0 U/L (5-49)
[2025-02-12 08:00] VITALS: BP 139/78
[2025-02-12] MEDS ORDERED: POTASSIUM CHLORIDE 20 MEQ TAB PO ONE (08:00)
[2025-02-12 09:10] LABS: BILIRUBIN Negative (Negative); BLOOD 3+ (Negative); CLARITY Cloudy (Clear); COLOR Dark Yellow (Yellow); KETONE Trace (Negative); LEUKO ESTERASE Trace (Negative); NITRITE Negative (Negative); PH 5.0 (4.5-8.0); SPECIFIC GRAVITY 1.025 (1.001-1.030); UROBILINOGEN 1.0 E.U./dl (0.0-1.0)
[2025-02-12 09:37] LABS: EPITHELIAL CELLS 21-30
[2025-02-12 09:38] LABS: BACTERIA 4+; CALCIUM OXALATE CRYSTALS Trace
[2025-02-12 09:52] LABS: VITAMIN D, 25-HYDROXY 85.8 ng/mL (30-100)
[2025-02-12 12:00] VITALS: BP 137/69
[2025-02-12] MEDS ORDERED: SODIUM CHLORIDE 0.9% 1,000 ML IV ONE (12:00)
[2025-02-12] MEDS ORDERED: HEPARIN SODIUM 5,000 UNIT/ML VIAL SC SCH (14:00)
[2025-02-12 16:00] VITALS: BP 115/72
[2025-02-12] MEDS ORDERED: RIVAROXABAN 20 MG TAB PO SCH (18:00)
[2025-02-12 20:00] VITALS: BP 141/77
[2025-02-12] MEDS ORDERED: PRED FORTE5 ML OP (21:03)
== END 2025-02-13 01:25 | disposition short-term general hospital (02) | DRG 640 ==
LOC: ED 18:05 → EDHOLD 02-12 00:31 → 5E 02-12 01:37
PROVIDERS: Emergency Medicine; Student in an Organized Health Care Education/Training Program; ADMIT Internal Medicine; ATTEND Internal Medicine
DX: E83.52 Hypercalcemia (principal); N17.0 Acute kidney failure with tubular necrosis; E87.1 Hypo-osmolality and hyponatremia; N39.0 Urinary tract infection, site not specified; E87.20 Acidosis, unspecified; Z68.42 Body mass index [BMI] 45.0-49.9, adult; D72.829 Elevated white blood cell count, unspecified; I10 Essential (primary) hypertension; E66.813 Obesity, class 3; E87.8 Other disorders of electrolyte and fluid balance, not elsewhere classified; D75.839 Thrombocytosis, unspecified; R74.8 Abnormal levels of other serum enzymes; Z87.891 Personal history of nicotine dependence; Z80.42 Family history of malignant neoplasm of prostate; Z79.899 Other long term (current) drug therapy; Z88.1 Allergy status to other antibiotic agents; Z88.5 Allergy status to narcotic agent; Z88.8 Allergy status to other drugs, medicaments and biological substances